=== PATIENT | male | born 1980 | race Caucasian/White ===

== ENCOUNTER 2022-12-20 20:18 | Emergency (ER) | payer MEDICAID, SELFPAY ==
[2022-12-20 20:46] VITALS: PULSE 73; RESP 18; O2SAT 98; BMI 25.1
--- NOTE | 2022-12-20 20:47 | ED.GENADULT ---
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 - Last Filed: 12/20/22 20:53> Stated complaint: withdrawals,seeking detox <Sara NewmanREMY - Last Filed: 12/20/22 20:53> Time Seen by Provider: 12/20/22 23:12 <Sara NewmanREMY - Last Filed: 12/20/22 20:53> Related Data Allergies/adverse reactions: Allergies Allergy/AdvReac Type Severity Reaction Status Date / Time No Known Allergies Allergy Verified 12/20/22 20:53 <Sara NewmanREMY - Last Filed: 12/20/22 20:53> [facility] Past Medical History Medical History: Medical History (Updated 12/20/22 @ 23:27 by Paris Boykin MD) Substance abuse <Sara NewmanREMY - Last Filed: 12/20/22 20:53> Social History Social History: Social History Advance Directives: No Advance Directives Information Provided: No <Sara Newman REMY - Last Filed: 12/20/22 20:53> Physical Exam ED Vital Signs: Vital Signs - 24 hr 12/20/22 20:46 12/20/22 23:19 Pulse Rate 73 70 Respiratory Rate 18 17 Blood Pressure 106/70 Pulse Oximetry 98 97 Oxygen Delivery Method Room Air Room Air BMI result Body Mass Index 25.1 <Sara NewmanREMY - Last Filed: 12/20/22 20:53> Vital Signs - 24 hr 12/20/22 20:46 12/20/22 23:19 Pulse Rate 73 70 Respiratory Rate 18 17 Blood Pressure 106/70 Pulse Oximetry 98 97 Oxygen Delivery Method Room Air Room Air BMI result Body Mass Index 25.1 <Paris Boykin MD - Last Filed: 12/20/22 23:33> Course Course Course Narrative: This is an RME: Additional HPI, ROS, PE not included below will be deferred to primary provider. Patient 42-year-old male who presents to the emergency department requesting assistance with detox from heroine, cocaine, methadone. States he received decreased dosage, methadone clinic in [place], was stuck in [place] for 1 week so couldn't go to clinic, upon returning, dosage was decreased, so he has resorted to using again. Last dose was yesterday at [facility] in [place]. He is requesting assistance with detox to stop using and get back to his prior dosing. Reports fatigue, GI upset, chills. Last used heroin and cocaine this afternoon. Denies known sick contacts. 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, COVID-19 screening <Sara Newman CNP - Last Filed: 12/20/22 20:53> Medications Administered Discontinued Medications Generic Name Dose Route Start Last Admin Trade Name Freq PRN Reason Stop Dose Admin Clonidine HCl 0.1 mg 12/20/22 23:17 12/20/22 23:23 Clonidine Hcl 0.1 Mg Tablet PO 12/20/22 23:18 0.1 mg ONCE ONE Administration Protocol Loperamide HCl 2 mg 12/20/22 23:17 12/20/22 23:23 Loperamide Hcl 2 Mg Capsule PO 12/20/22 23:18 2 mg ONCE ONE Administration Ondansetron HCl 4 mg 12/20/22 23:17 12/20/22 23:24 Ondansetron Odt 4 Mg Tab.Rapdis TRANSLINGU 12/20/22 23:18 4 mg ONCE ONE Administration <Sara Newman CNP - Last Filed: 12/20/22 20:53> Medications Administered Discontinued Medications Generic Name Dose Route Start Last Admin Trade Name Freq PRN Reason Stop Dose Admin Clonidine HCl 0.1 mg 12/20/22 23:17 12/20/22 23:23 Clonidine Hcl 0.1 Mg Tablet PO 12/20/22 23:18 0.1 mg ONCE ONE Administration Protocol Loperamide HCl 2 mg 12/20/22 23:17 12/20/22 23:23 Loperamide Hcl 2 Mg Capsule PO 12/20/22 23:18 2 mg ONCE ONE Administration Ondansetron HCl 4 mg 12/20/22 23:17 12/20/22 23:24 Ondansetron Odt 4 Mg Tab.Rapdis TRANSLINGU 12/20/22 23:18 4 mg ONCE ONE Administration <Paris Boykin MD - Last Filed: 12/20/22 23:33> Medical Decision Making Medical Decision Making MDM Narrative: - care team has been consulted <Paris Boykin MD - Last Filed: 12/20/22 23:33> Lab Data Labs: Lab Results 12/20/22 12/20/22 Range/Units 21:06 22:03 COVID-19 (SATR) Invalid Negative (Negative) COVID-19 Clin Com See Note See Note <Sara Newman CNP - Last Filed: 12/20/22 20:53> Lab Results 12/20/22 12/20/22 Range/Units 21:06 22:03 COVID-19 (STAR) Invalid Negative (Negative) COVID-19 Clin Com See Note See Note <Paris Boykin MD - Last Filed: 12/20/22 23:33> Discharge Plan Discharge Clinical Impression: Substance abuse <Sara Newman CNP - Last Filed: 12/20/22 20:53> Patient Disposition: Still a Patient <Sara Newman CNP - Last Filed: 12/20/22 20:53> Instructions: Narcotic Use Disorder (ED) <Sara Newman CNP - Last Filed: 12/20/22 20:53> Additional Instructions: Please follow-up with your primary care physician tomorrow. If you have any worsening or new symptoms, please return to the emergency room or call 911 <Sara Newman CNP - Last Filed: 12/20/22 20:53> Interventions: [place]-Suicide Risk Severity Scale Last Done: 12/20/22 20:53 <Sara Newman CNP - Last Filed: 12/20/22 20:53>
[2022-12-20 21:48] LABS: COVID-19 Test Invalid (Negative); IDNOW Serial# BCCEAD1C
[2022-12-20 23:10] LABS: COVID-19 Test Negative (Negative); IDNOW Serial# 6674DD1D
--- NOTE | 2022-12-20 23:18 | ED_ITS ---
HPI - General Adult General Chief complaint: ETOH/Substance Use Stated complaint: withdrawals,seeking detox Time Seen by Provider: 12/20/22 23:12 Source: patient Mode of arrival: ambulatory Limitations: no limitations History of Present Illness HPI narrative: Patient comes to the emergency room complaining withdrawal symptoms. Patient states that he did not get his full does of methadone. Patient requesting a f ull dose at this time. Patient states that his methadone Clinic is in [place]. Patient denies suicidal or homicidal ideation. Related Data Allergies Allergy/AdvReac Type Severity Reaction Status Date / Time No Known Allergies Allergy Verified 12/20/22 20:53 Review of Systems Review of Systems: Constitutional : No Weight loss, No Fever, No Chills, No Night Sweats, No Fatigue, patient states that he feels unwell ENT/Mouth : No Hearing loss, No Ear Pain, No Nasal Congestion, No Sinus Pain, No Hoarseness, No sore throat, No Rhinorrhea, No Swallowing Difficulty Eyes: No Eye Pain, No Swelling, No Redness, No Foreign Body, No Discharge, No V ision Changes Cardiovascular : No Chest Pain, No SOB, No Dyspnea on Exertion, No Orthopnea, No Edema, No Palpitations Respiratory : No Cough, No Sputum, No Wheezing, No Smoke Exposure, No Dyspnea Gastrointestinal : No Nausea, No Vomiting, No Diarrhea, No Constipation, No abdominal Pain, No Hematochezia, No Melena Genitourinary : no irregular bleeding, No Dysuria, No Urinary Frequency, No Hematuria, No Urinary Incontinence, No Urgency, No Flank Pain, No Urinary Flow Changes, No Hesitancy Musculoskeletal : No joint pain, No Myalgias, No Joint Swelling Skin : No Skin Lesions, No rash Neuro : No Weakness, No Numbness, No Paresthesias, No Loss of Consciousness, No Dizziness, No Headache Psych : No Anxiety/Panic, No Depression, No SI/HI/AH/VH, No Social Issues, Heme/Lymph: No Bruising, No Bleeding,No Lymphadenopathy Endocrine : No Polyuria, No Polydipsia, No Temperature Intolerance [facility] Past Medical History Medical History (Updated 12/20/22 @ 23:27 by Paris Boykin MD) Substance abuse Social History Social History Advance Directives: No Advance Directives Information Provided: No Physical Exam ED Vital Signs: Vital Signs - 24 hr 12/20/22 20:46 12/20/22 23:19 Pulse Rate 73 70 Respiratory Rate 18 17 Blood Pressure 106/70 Pulse Oximetry 98 97 Oxygen Delivery Method Room Air Room Air BMI result Body Mass Index 25.1 Const Other: Appearance: Alert. Oriented X3. No acute distress. Eyes: Pupils equal, round and reactive to light. ENT: Pharynx normal. Neck: Normal inspection. Neck supple. No lymph nodes noted. No crepitus CVS: Normal heart rate and rhythm. Pulses normal. Normal S1 and S2 Respiratory: No respiratory distress. Breath sounds normal. No Wheezing. No rales Abdomen: Soft and nontender. No rigidity. No distention. Skin: Skin warm and dry. Normal skin color. Normal skin turgor. Extremities: No lower extremity edema. No Lacerations. No Rash Neuro: Oriented X 3. No motor deficit. No sensory deficit. Moving all extremities. No slurred speech. CN 2 through 12 grossly intact Psych: calm, cooperative, normal affect Course Course Course Narrative: -patient was given p.o. clonidine, loperamide, Zofran -care team has been consulted -at this time, we cannot provide patient with methadone, as the clinic is closed and we cannot confirm the dose. Medications Administered Discontinued Medications Generic Name Dose Route Start Last Admin Trade Name Naviq PRN Reason Stop Dose Admin Clonidine HCl 0.1 mg 12/20/22 23:17 12/20/22 23:23 Clonidine Hcl 0.1 Mg Tablet PO 12/20/22 23:18 0.1 mg ONCE ONE Administration Protocol Loperamide HCl 2 mg 12/20/22 23:17 12/20/22 23:23 Loperamide Hcl 2 Mg Capsule PO 12/20/22 23:18 2 mg ONCE ONE Administration Ondansetron HCl 4 mg 12/20/22 23:17 12/20/22 23:24 Ondansetron Odt 4 Mg Tab.Rapdis TRANSLINGU 12/20/22 23:18 4 mg ONCE ONE Administration Medical Decision Making Medical Decision Making MDM Narrative: -care team has been consulted -patient isn't suicidal homicidal -patient was evaluated by the care team, patient was giving information to call to schedule his own appointments and detox Lab Data Labs: Lab Results 12/20/22 12/20/22 Range/Units 21:06 22:03 COVID-19 (STAR) Invalid Negative (Negative) COVID-19 Clin Com See Note See Note Discharge Plan Discharge Clinical Impression: Substance abuse Patient Disposition: Home, Self-Care Instructions: Narcotic Use Disorder (ED) Additional Instructions: Please follow-up with your primary care physician tomorrow. If you have any worsening or new symptoms, please return to the emergency room or call 911 Interventions: [place]-Suicide Risk Severity Scale Last Done: 12/20/22 20:53
[2022-12-20 23:19] VITALS: BP 106/70; PULSE 70; RESP 17; O2SAT 97
[2022-12-20] MEDS: Loperamide HCl 2 MG CAPSULE PO (23:23)
[2022-12-20] MEDS: cloNIDine HCL 0.1 MG TABLET PO (23:23)
[2022-12-20] MEDS: Ondansetron ODT 4 MG TAB.RAPDIS TRANSLINGU (23:24)
--- NOTE | 2022-12-21 00:04 | MHC.CARE ---
CARE Team provided resources to pt and being discharged at this time. ED provider aware and in agreement.
== END 2022-12-21 00:51 | disposition home or self-care (01) ==
PROVIDERS: Nurse Practitioner Family; Emergency Provider Emergency Medicine; PCP Family Medicine
DX: F10.239 Alcohol dependence with withdrawal, unspecified (principal); Y90.9 Presence of alcohol in blood, level not specified; Z20.822 Contact with and (suspected) exposure to COVID-19; Z20.828 Contact with and (suspected) exposure to other viral communicable diseases
CPT/HCPCS: 87635; 99283; 99284

== ENCOUNTER 2022-12-22 10:41 | Emergency (ER) | payer MEDICAID, SELFPAY ==
[2022-12-22 11:01] VITALS: BP 114/73; PULSE 73; RESP 16; TEMP 36.3; O2SAT 97; BMI 25.1
--- NOTE | 2022-12-22 11:32 | ED.GENADULT ---
HPI - General Adult General Chief complaint: General Medical Stated complaint: Needs methadone dose Time Seen by Provider: 12/22/22 11:21 Source: patient Mode of arrival: ambulatory Limitations: no limitations History of Present Illness HPI narrative: Patient is a 42 year old assigned male at with a history of opiate abuse presenting to the emergency department today requesting his methadone dose. Patient states that he had to miss his methadone dose yesterday and today they didn't get there soon enough to have their previous dose verified. Patient denies any dizziness, lightheadedness, abdominal pain, nausea, vomiting, fever, chills, blurry vision, double vision, loss of vision, chest pain, difficulty breathing, shortness of breath, back pain, night sweats, pain with urination, increased urinary frequency, increased urinary urgency, blood in his urine or stool, syncope or a near syncopal episode, recent trauma or falls, bowel incontinence, bladder incontinence, bowel retention, bladder retention, or any other complaints at this time. Severity: mild Severity scale (1-10): 1 Relieving factors: none Exacerbating factors: none Associated symptoms: denies other symptoms Treatments prior to arrival: none Related Data Allergies Allergy/AdvReac Type Severity Reaction Status Date / Time No Known Allergies Allergy Verified 12/22/22 11:01 Review of Systems Constitutional: Constitutional: Reports no additional constitutional complaints, Denies chills, Denies fever(s) and Denies night sweats Eyes: Eyes: Reports no additional eye complaints, Denies blurry vision, Denies change in vision, Denies diplopia, Denies eye discharge, Denies loss of vision and Denies eye pain ENT: Denies dizziness Cardiovascular: Cardiovascular: Reports no additional cardiovascular complaints, Denies chest pain, Denies lightheadedness, Denies Loss of Consciousness and Denies dyspnea Respiratory: Respiratory: Reports no additional respiratory complaints and Denies dyspnea Gastrointestinal: Gastrointestinal: Reports no additional gastrointestinal complaints, Denies abdominal pain, Denies melena, Denies hematochezia, Denies change in bowel habits and Denies change in stool character Genitourinary: Genitourinary: Reports no additional male genitourinary complaints, Denies hematuria, Denies oliguria, Denies difficulty urinating, Denies dysuria, Denies urinary frequency, Denies urinary hesitancy, Denies urinary incontinence and Denies urinary urgency Musculoskeletal: Musculoskeletal: Reports no additional musculoskeletal complaints, Denies numbness and Denies tingling Neurologic: Denies dizziness, Denies loss of vision, Denies numbness and Denies tingling Psychiatric: Psychiatric: Reports no additional psychiatric complaints Endocrine: Endocrine: Reports no additional endocrine complaints Hematologic/Lymphatic: Hematologic/Lymphatic: Reports no additional hematologic/lymphatic complaints Allergic/Immunologic: Allergic/Immunologic: Reports no additional allergic/immunologic complaints PMFSH Past Medical History Attestation statement: The following information was validated with the patient. Source: old records reviewed and nursing notes reviewed Medical History Substance abuse Social History Social History Advance Directives: No Advance Directives Information Provided: No Physical Exam ED Vital Signs: Vital Signs - 24 hr 12/22/22 11:01 Temperature 97.4 F Pulse Rate 73 Respiratory Rate 16 Blood Pressure 114/73 Pulse Oximetry 97 Oxygen Delivery Method Room Air BMI result Body Mass Index 25.1 Const General: cooperative, no acute distress, alert and awake Nutritional Appearance: well nourished Orientation/consciousness: patient oriented x3 Limitations: no limitations HENMT Head: Yes normal to inspection and Yes atraumatic Ears: hearing grossly normal bilaterally and external ears normal General nose exam: Normal external nose present, no nasal discharge noted and no epistaxis Face and sinus: Yes normal facial exam, No abrasion and No laceration Mouth: Normal oral and palatal mucosa present, no drooling and no muffled voice Eyes General: appearance normal, both eyes and all related structures Periorbital: periorbital findings normal Eyelids: Yes eyelids normal Conjunctivae: conjunctivae normal Pupils: Equal, round and reactive pupils present EOM: EOMs intact bilaterally Neck Neck: Yes normal visual inspection, Yes full ROM and Yes no lymphadenopathy Chest Chest palpation & inspection: normal inspection of the chest Resp Effort & Inspection: normal respiratory effort and able to speak in complete sentences Auscultation: clear to auscultation bilaterally Cardio Rate: regular rate Rhythm: regular rhythm GI Inspection: Yes normal to inspection Palpation (GI): Soft to palpation, not firm, nontender and no guarding Neuro General: patient oriented x3 and moves all extremities Cranial nerves: Yes Equal, round and reactive pupils present Cognition (Neuro): normal cognition Motor exam (neuro): 5/5 motor strength present throughout Sensory Exam: Normal double simultaneous stimulation for sensation Coordination: [id number] test normal Extrem General: Yes normal to inspection, Yes full ROM and Yes capillary refill normal Psych Appearance: grossly normal Mental Status: mental status grossly normal Affect: normal affect Attitude: cooperative Thought process: Normal thought process present Thought content: Normal thought content present Insight: Good insight present (Psych) Medications Administered Discontinued Medications Generic Name Dose Route Start Last Admin Trade Name Nery MARTINEZ Reason Stop Dose Admin Methadone HCl 40 mg 12/22/22 11:30 12/22/22 11:37 Methadone Hcl 20 Mg/2 Ml Oral.Conc PO 12/22/22 11:31 40 mg ONCE ONE Administration Medical Decision Making Medical Decision Making [facility] Narrative: Patient is a 42 year old assigned male at with a history of opiate abuse presenting to the emergency department today requesting his methadone dose. Patient's physical exam was unremarkable. Patient's dose was verified at 40mg. I explained my physical exam findings to the patient. I answered all questions asked by the patient. Patient received his methadone dose, without incident. I stressed the importance of the patient taking his medication as prescribed. I stressed the importance of the patient following up with his primary care provider. I stressed the importance of the patient returning to the emergency department immediately if his symptoms were to worsen or if he were to develop any dizziness, shortness of breath, difficulty breathing, chest pain, blurry vision, loss of vision, nausea, vomiting, abdominal pain, fever, chills, back pain, or any other complaints. Patient verbalized agreement and understanding with this treatment plan and discharge. Differential Diagnosis Differential Diagnoses: The differential diagnosis associated with the presentation includes missed methadone dose Discharge Plan Discharge Clinical Impression: Methadone dependence Patient Disposition: Home, Self-Care Additional Instructions: Follow up with your primary care provider. Return to the emergency department immediately if you develop any dizziness, shortness of breath, difficulty breathing, chest pain, blurry vision, loss of vision, nausea, vomiting, abdominal pain, fever, chills, back pain, or any other complaints. Referrals: Michael Danielle DO [Primary Care Provider] - Interventions: ED Discharge Assessment Last Done: 12/22/22 11:47 Discharge Date/Time: 12/22/22 11:48 Print Language: Greenlandic
[2022-12-22] MEDS: methADONE HCl 20 MG/2 ML ORAL.CONC 40 MG PO (11:37)
--- NOTE | 2022-12-22 11:40 | PC.NURSE ---
methadone verified, pt medicated per provider order.
== END 2022-12-22 11:48 | disposition home or self-care (01) ==
LOC: HO.ED 11:44
PROVIDERS: Emergency Provider Emergency Medicine; PCP Family Medicine
DX: F11.20 Opioid dependence, uncomplicated (principal)
CPT/HCPCS: 99282; 99283

== ENCOUNTER 2024-02-11 00:30 | Inpatient (IN) | payer MEDICAID, SELFPAY ==
[2024-02-11] VITALS (70 sets, daily range): BP systolic 45–134; BP diastolic 16–92; PULSE 60–139; RESP 11–25; TEMP 31–39.7; O2SAT 90–100; BMI 23.2
--- NOTE | 2024-02-11 | EEG_ITS ---
FINDINGS: Background activity consists of a flat line base with recurrent burst suppression pattern with burst lasting from 2 to 10 seconds of generalized polyspikes followed by suppression patterns throughout the record. IMPRESSION: This is a markedly abnormal EEG with a burst suppression pattern consistent with severe hypoxic encephalopathy and usually indicative of a poor prognosis. Clinical correlation is suggested. MD FANG Paz/THADDEUS / [id number]
--- NOTE | ~2024-02-11 | XR_ITS ---
EXAMINATION: XR CHEST CLINICAL INFORMATION: Central line placement COMPARISON: None available. TECHNIQUE: Frontal view of the chest was obtained. FINDINGS: Lines and tubes: Endotracheal tube 2.4 cm above layla. NG tube noted with the tip outside the [id number] with extending into the upper abdomen passing EG junction. This catheter noted with the tip in the region of the SVC. No pneumothorax. Cardiomediastinal silhouette normal. Lungs clear. Bone and soft tissues unremarkable XR/XR chest 1V IMPRESSION: 1. Endotracheal tube 2.4 cm above layla. Central venous catheter tip as above. No pneumothorax
--- NOTE | ~2024-02-11 | XR_ITS ---
EXAMINATION: XR CHEST CLINICAL INFORMATION: Placement of OGT COMPARISON: Same day earlier TECHNIQUE: Frontal view of the chest was obtained. FINDINGS: Patient is intubated with endotracheal tube in good position with the tip approximately 7 cm above the layla. Replaced NGT is well positioned with port and and/or the tube in the stomach. Lungs are well-expanded. There is mild dextroscoliosis and no evidence of cardiomegaly. No pleural effusions. XR/XR chest 1V IMPRESSION: Well-positioned support tubes
--- NOTE | ~2024-02-11 | XR_ITS ---
EXAMINATION: XR CHEST CLINICAL INFORMATION: Status post cardiac arrest. COMPARISON: Chest radiograph 02/11/2024. TECHNIQUE: Frontal view of the chest was obtained. FINDINGS: The endotracheal tube terminates at 3.5 cm above the layla. Right IJ CVC tip projects at the level of the lower SVC. An enteric tube courses into the abdomen and terminates outside of the field of view. Stable prominence of the cardiomediastinal silhouette. Increased bronchovascular markings with no consolidation, pleural effusion or pneumothorax. No displaced osseous fractures. XR/XR chest 1V IMPRESSION: 1. The endotracheal tube terminates at 3.5 cm above the layla. 2. Increased bronchovascular markings with no consolidation, pleural effusion or pneumothorax. Findings are nonspecific could be accentuated by low lung volumes and bronchovascular crowding, versus related with small airways disease and pulmonary edema. 3. No displaced osseous fractures.
--- NOTE | ~2024-02-11 | XR_ITS ---
EXAMINATION: XR CHEST CLINICAL INFORMATION: Post intubation evaluation COMPARISON: None available. TECHNIQUE: Frontal view of the chest was obtained. FINDINGS: Endotracheal tube tip is at the thoracic inlet. On this portable study the lung bases have not been included. There is atelectasis at the lung bases. Heart size normal and slight distention of the pulmonary vessels may be positional. XR/XR chest 1V IMPRESSION: Incomplete coverage of the chest. The ET tube is just past the thoracic inlet.
--- NOTE | 2024-02-11 00:49 | PC.NURSE ---
pt biba from home, a&ox3, pt reports withdrawing from methadone due to relapsing 3 days ago, pt reports he uses IV drugs, reports using cocaine. pt reports he last used this afternoon. pt denies si/hi. reports going to the police station for help. pt changed over, belongings placed into POD closet by security.
--- NOTE | 2024-02-11 00:55 | ECG_ITS ---
Test Reason : TACHYCARDIA Blood Pressure : / mmHG Vent. Rate : 116 BPM Atrial Rate : 116 BPM P-R Int : 126 ms QRS Dur : 096 ms QT Int : 382 ms P-R-T Axes : 062 074 050 degrees QTc Int : 530 ms Sinus tachycardia Nonspecific ST abnormality Prolonged QT Abnormal ECG No previous ECGs available Referred By: Trista Rose Electronically Signed By:RYAN ZHU
[2024-02-11 01:11] LABS: Basophils Percent Auto 0.3 % (0-2); Eosinophils Absolute Auto 0.1 X10*3/uL (0.0-0.4); Eosinophils Percent Auto 1.2 % (0-4); Hematocrit 37.3 % (42.0-52.0); Hemoglobin 13.1 g/dl (14.0-18.0); Imm Gran Abs Auto 0.05 X10*3/uL (0.00-0.03); Imm Gran Pct Auto 0.4 % (0.0-0.4); Lymphocytes Absolute Auto 1.1 X10*3/uL (1.2-4.9); Lymphocytes Percent Auto 8.8 % (20-40); MANUAL DIFF FLAG NO; Mean Corpuscular HGB Conc 35.1 g/dl (31.0-36.0); Mean Corpuscular Hemoglobin 31.1 pg (27.0-33.0); Mean Corpuscular Volume 88.6 fL (80.0-98.0); Mean Platelet Volume 10.4 fL (9.4-12.4); Monocytes Absolute Auto 0.8 X10*3/uL (0.1-1.2); Monocytes Percent Auto 6.6 % (2-11); Neutrophils Absolute Auto 9.9 x10*3/uL (2.0-8.3); Neutrophils Percent Auto 82.7 % (45-73); Platelet Count 296 X10*3/uL (160-400); Red Blood Count 4.21 X10*6/uL (4.60-5.80); Red Cell Distribution Width 13.3 % (11.0-16.0)
[2024-02-11] MEDS: LORazepam 1 MG TABLET 2 MG PO (01:12)
[2024-02-11] MEDS: methADONE HCl 20 MG/2 ML ORAL.CONC 40 MG PO (01:12)
--- NOTE | 2024-02-11 01:15 | PC.NURSE ---
labs obtained and sent to lab, pt medicated per mar, pt tolerated well with water. call lopez within reach.
--- NOTE | 2024-02-11 01:16 | ED_ITS ---
HPI - General Adult General Chief complaint: General Medical Stated complaint: withdrawals Time Seen by Provider: 02/11/24 00:31 Source: patient and old records reviewed Mode of arrival: EMS Limitations: no limitations History of Present Illness HPI narrative: 43 yo male with PMH of treated hep C, cocaine abuse, opiate use disorder states he goes to [facility] in [place] and takes 240mg methadone daily but has not dosed in 3 days comes in with c/o feeling paranoid and myalgias. No SI/HI wants to go to detox. Injected cocaine prior to arrival. He note he hasn't slept or eaten in days and is exhausted. MD complaint: withdrawal Onset (ago): day(s) (2) Radiation: non-radiation Severity: moderate Quality: aching Pain Consistency: constant Relieving factors: none Exacerbating factors: none Associated symptoms: malaise Treatments prior to arrival: none Related Data Allergies Allergy/AdvReac Type Severity Reaction Status Date / Time No Known Allergies Allergy Verified 02/11/24 00:42 Review of Systems 2 Review of Systems: Constitutional : No Fever, pos Chills, No Fatigue ENT/Mouth : No sore throat, No Rhinorrhea Eyes: No Eye Pain, No Swelling, No Redness Cardiovascular : No Chest Pain, No SOB, No Dyspnea on Exertion Respiratory : No Cough, No Sputum Gastrointestinal : pos Nausea, No Vomiting, No Diarrhea, No abdominal Pain Genitourinary : No Dysuria, No Urinary Frequency, No Hematuria, Musculoskeletal : No joint pain, pos Myalgias, No Joint Swelling Skin : No Skin Lesions, No rash Neuro : No Weakness, No Numbness, No Dizziness, noHeadache Psych : pos Anxiety/Panic, No Depression Heme/Lymph: No Bruising, No Bleeding,No Lymphadenopathy Endocrine : No Polyuria, No Polydipsia All other systems reviewed and are negative PMFSH Past Medical History Attestation statement: The following information was validated with the patient. Source: old records reviewed Medical History Substance abuse Social History Social History Smoked in Last 30 Days: Yes Use of substances other than those prescribed or required for medical reasons: Yes Substance Use Type: Crack/Cocaine Advance Directives: No Advance Directives Information Provided: Yes Do you have a plan to hurt others: No Plan Physical Exam ED Vital Signs: Vital Signs - 24 hr 02/11/24 00:36 02/11/24 02:29 02/11/24 03:02 Temperature 98.2 F 99.5 F Pulse Rate 119 H 116 H 85 Respiratory Rate 11 L 20 15 Blood Pressure 134/68 114/51 L 105/59 L Pulse Oximetry 95 94 95 Oxygen Delivery Method Room Air Room Air Room Air 02/11/24 04:01 02/11/24 05:01 02/11/24 06:00 Temperature 97.5 F Pulse Rate 77 73 73 Respiratory Rate 18 12 12 Blood Pressure 95/47 L 97/54 L 96/52 L Pulse Oximetry 97 98 100 Oxygen Delivery Method Room Air Room Air Room Air BMI result Body Mass Index 23.2 Appearance: Alert. Oriented X3. Mild acute distress. Anxious restless says he hasn't slept in 8 days Eyes: Pupils equal, round and reactive to light. ENT: Pharynx normal. Neck: Normal inspection. Neck supple. CVS: Normal heart rate and rhythm. Pulses normal. Respiratory: No respiratory distress. Breath sounds normal. Abdomen: Soft and nontender. Skin: Skin warm and diaphoretic. Normal skin color. Normal skin turgor. Extremities: No lower extremity edema. No calf ttp Neuro: Oriented X 3. No motor deficit. No sensory deficit. Course Course Course Narrative: 225am the patient seems to have become even more diaphoretic and acutely agitated I am concerned given his qtc about more methadone he could also be in acute cocaine psychosis this is acute change from his admission - 4mg IV ativan ordered Reevaluation(s) Reevaluation #1: after 4mg of IV ativan asleep and event resolved VS stable Reevaluation #2: still resting comfortably VS stable resting comfortably 638am signed out to Dr. Richardson pending waking up and repeat evaluation Medications Administered Generic Name Dose Route Start Last Admin Trade Name Freq PRN Reason Stop Dose Admin Sodium Chloride 1,000 mls @ 100 mls/hr 02/11/24 01:30 02/11/24 01:47 Ns IVCONT 100 mls/hr .Q10H MONICO Administration Potassium Chloride 10 meq in 100 mls @ 100 mls/hr 02/11/24 05:15 02/11/24 06:23 Potassium Chloride/H20 IV 04/30/24 07:14 100 mls/hr Q1H MONICO Administration Discontinued Medications Generic Name Dose Route Start Last Admin Trade Name Nery PRN Reason Stop Dose Admin Magnesium Sulfate 2 gm in 50 mls @ 150 mls/hr 02/11/24 01:22 02/11/24 02:07 Magnesium Sulfate/H2o IV 02/11/24 01:41 Infused ONCE ONE Infusion Sodium Chloride 1,000 mls @ 999 mls/hr 02/11/24 05:48 02/11/24 05:50 Ns IV 02/11/24 06:48 999 mls/hr .Q1H1M ONE Administration Lorazepam 2 mg 02/11/24 00:55 02/11/24 01:12 Lorazepam 1 Mg Tablet PO 02/11/24 00:56 2 mg ONCE ONE Administration Lorazepam 2 mg 02/11/24 02:29 02/11/24 02:30 Lorazepam 2 Mg/Ml Vial IVPUSH 02/11/24 02:30 2 mg ONCE ONE Administration Lorazepam 2 mg 02/11/24 02:38 02/11/24 02:45 Lorazepam 2 Mg/Ml Vial IVPUSH 02/11/24 02:39 2 mg ONCE ONE Administration Methadone HCl 40 mg 02/11/24 01:15 02/11/24 01:12 Methadone Hcl 20 Mg/2 Ml Oral.Conc PO 02/11/24 01:16 40 mg ONCE ONE Administration Potassium Chloride 40 meq 02/11/24 01:27 02/11/24 01:47 Potassium Chloride Packet 20 Meq Packet PO 02/11/24 01:28 40 meq ONCE ONE Administration Medical Decision Making Medical Decision Making MDM Narrative: 43 yo male with PMH of treated hep C, cocaine abuse, opiate use disorder here with no methadone dose for 3 days and lack of sleep due to cocaine use - at this time oral ativan and 40mg methadone ordered, EKG and basic labs, denies medical complaints other than insomnia. No SI. Will refer to addiction medicine for the AM. qtc prolonged IV magnesium ordered addiction will need to address in AM Differential Diagnosis Differential Diagnoses: The differential diagnosis associated with the presentation includes substance abuse, withdrawal Admission/Observation Consideration of admission/observation: Escalation of care including admission/observation considered physician observation started at 137am pending addiction medicine and repeat EKG at 4am Lab Data MDM Lab Attestation statement: I reviewed the patient's lab results. 02/11/24 01:07 02/11/24 01:07 Labs: Lab Results 02/11/24 Range/Units 01:07 WBC 12.0 H (4.8-10.8) X10*3/uL RBC 4.21 L (4.60-5.80) X10*6/uL Hgb 13.1 L (14.0-18.0) g/dl Hct 37.3 L (42.0-52.0) % MCV 88.6 (80.0-98.0) fL MCH 31.1 (27.0-33.0) pg MCHC 35.1 (31.0-36.0) g/dl RDW 13.3 (11.0-16.0) % Plt Count 296 (160-400) X10*3/uL MPV 10.4 (9.4-12.4) fL Immature Gran % (Auto) 0.4 (0.0-0.4) % Neut % (Auto) 82.7 H (45-73) % Lymph % (Auto) 8.8 L (20-40) % [place] % (Auto) 6.6 (2-11) % Eos % (Auto) 1.2 (0-4) % Baso % (Auto) 0.3 (0-2) % Lymph # (Auto) 1.1 L (1.2-4.9) X10*3/uL [place] # (Auto) 0.8 (0.1-1.2) X10*3/uL Eos # (Auto) 0.1 (0.0-0.4) X10*3/uL Baso # (Auto) 0.0 (0.0-0.2) X10*3/uL Abs Immat Gran (auto) 0.05 H (0.00-0.03) X10*3/uL Absolute Neuts (auto) 9.9 H (2.0-8.3) x10*3/uL Absolute Nucleated RBC 0.000 (0.0-0.012) X10*3/uL Nucleated RBC % (auto) 0.0 (0.0-0.2) /100WBC Sodium 137 (135-145) mmol/L Potassium 3.0 L (3.3-5.1) mmol/L Chloride 102 (96-108) mmol/L Carbon Dioxide 21 L (22-29) mmol/L Anion Gap 17 (12-20) BUN 15 (9-16) mg/dL Creatinine 0.77 (0.5-1.4) mg/dL Estim Creat Clear Calc 123.6 Estimated GFR > 60 Random Glucose 139 H (60-115) mg/dL Calcium 9.3 (8.4-10.2) mg/dL Magnesium 1.8 (1.6-2.6) mg/dL Total Bilirubin 0.5 (0.0-1.0) mg/dL Direct Bilirubin 0.2 (0.0-0.5) mg/dL AST 25 (5-37) U/L ALT 19 (0-40) U/L Alkaline Phosphatase 66 (39-117) U/L Total Protein 7.6 (6.5-8.0) g/dL Albumin 3.8 (3.5-5.0) g/dL Ethyl Alcohol < 10 mg/dL Independent Interpretation I performed an independent interpretation of an: EKG Interpretation: Rate: 116 Rhythm: sinus tachycardic [place]: normal Normal P waves. Normal SARAH. Normal QRS complex. ST T wave : no SIMONE, nonspecific ST T wave changes likely due to prolonged qtc qTC: 530 prior studies: no acute ischemia The study has been interpreted contemporaneously by me. Rate: 75 Rhythm: NSR [place]: normal Normal P waves. Normal SARAH. Normal QRS complex. ST T wave : normal no SIMONE qTC: prolonged 509 prior studies: improving qtc The study has been interpreted contemporaneously by me. . Independent Historian Clinical information obtained from an independent historian. History obtained from or confirmed by: EMS External Record Review External record reviewed: Inpatient record Critical Care Time Critical Care Time Critical Care Time: Yes Total Critical Care Time: 60 Attestation: IVF< repeat IV ativan for withdrawal symptoms, repletion of K and magnesiu, repeat EKG I attest to this time spent taking care of the patient Discharge Plan Discharge Clinical Impression: Cocaine abuse, Opiate withdrawal, Long QT interval Patient Disposition: Still a Patient Print Language: Japanese
[2024-02-11 01:23] LABS: Ethanol < 10 mg/dL
[2024-02-11 01:26] LABS: Alanine Aminotransferase 19 U/L (0-40); Albumin Level 3.8 g/dL (3.5-5.0); Alkaline Phosphatase 66 U/L (39-117); Anion Gap 17 (12-20); Aspartate Amino Transferase 25 U/L (5-37); Bilirubin Direct 0.2 mg/dL (0.0-0.5); Bilirubin Total 0.5 mg/dL (0.0-1.0); Blood Urea Nitrogen 15 mg/dL (9-16); Calcium 9.3 mg/dL (8.4-10.2); Carbon Dioxide 21 mmol/L (22-29); Chloride 102 mmol/L (96-108); Creatinine Clr Calc Pharmacy 123.6; Estimated Glomerular Filt Rate > 60; Glucose Random 139 mg/dL (60-115); Magnesium 1.8 mg/dL (1.6-2.6); Sodium 137 mmol/L (135-145); Total Protein 7.6 g/dL (6.5-8.0)
[2024-02-11] MEDS: Potassium Chloride Packet 20 MEQ PACKET 40 MEQ PO (01:47)
[2024-02-11] MEDS: 0.9 % Sodium Chloride 1,000 ML 100 ML IVCONT ×2 (01:47→10:50)
[2024-02-11] MEDS: Magnesium Sulfate/H2O 2 GM/50 ML PIGGYBACK IV (01:47)
[2024-02-11] MEDS: LORazepam 2 MG/ML VIAL IVPUSH ×4 (02:30→07:35)
--- NOTE | 2024-02-11 02:36 | PC.NURSE ---
pt extremely diaphoretic, agitated, with visual and auditory hallucinations. seizure pads placed for safety. at bedside. pt medicated with 4mg ativan at this time; pt able to follow commands as asked.
--- NOTE | 2024-02-11 03:03 | PC.NURSE ---
pt resting in stretcher, eyes closed, respirations even and unlabored; sating 95-98% on room air, normal sinus on tele 80-85bpm. aware.
--- NOTE | 2024-02-11 04:00 | ECG_ITS ---
Test Reason : QTC Blood Pressure : / mmHG Vent. Rate : 075 BPM Atrial Rate : 075 BPM P-R Int : 180 ms QRS Dur : 102 ms QT Int : 456 ms P-R-T Axes : 057 078 048 degrees QTc Int : 509 ms Normal sinus rhythm Prolonged QT Abnormal ECG When compared with ECG of 11-FEB-2024 01:18, Vent. rate has decreased BY 41 BPM Referred By: Trista Rose Electronically Signed By:RYAN ZHU
[2024-02-11] MEDS: Potassium Chloride/H20 10 MEQ/100 ML PIGGYBACK 100 MEQ IV ×3 (05:22→10:50)
[2024-02-11] MEDS: 0.9 % Sodium Chloride 1,000 ML 999 ML IV ×2 (05:50→08:19)
--- NOTE | 2024-02-11 05:58 | PC.NURSE ---
aware of pt bp, 1 liter fluid bolus begun at this time.
--- NOTE | 2024-02-11 07:00 | CA_ITS ---
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 The visually estimated ejection fraction is between 35-40%. - No obvious valvular pathology seen on this study. Findings Procedure Information The study quality is limited by the patients inability to tolerate the test. Left Ventricle Normal left ventricular cavity size. There is normal left ventricular wall thickness. The left ventricular systolic function is moderately decreased. The visually estimated ejection fraction is between 35-40%. There is moderate global hypokinesis. Diastolic function is normal for age. Right Ventricle Moderately increased right ventricular cavity size. There is normal right ventricular systolic function. Atria Both atria are normal in size. Aortic Valve There is a normal trileaflet aortic valve. There is no aortic valve stenosis. There is no aortic valve regurgitation. Mitral Valve The mitral valve appears normal. There is no mitral valve regurgitation. There is no mitral valve stenosis. Pulmonic Valve The pulmonic valve is likely normal. Tricuspid Valve Normal tricuspid valve structure. There is trace tricuspid valve regurgitation. There is no evidence of pulmonary hypertension. Great Vessels The aorta was not well visualized. Venous The inferior vena cava is dilated. (on ventilator). Pericardium/Pleural There is no evidence of pericardial effusion. Prior Study Comparison No prior study available for comparison. Recommendations, Care & Conclusions No obvious valvular pathology seen on this study. Measurements 2D Linear Measurements IVSd: 0.70 0.6-0.9/0.6-1.0 cm LVIDd: 5.66 3.9-5.3/4.2-5.9 cm LVIDd Index: 3.04 2.4-3.2/2.2-3.1 cm/m2 LVIDs: 4.79 2.0-3.6 cm LVPWd: 0.56 0.7-1.1 cm LA Diam: 3.40 2.7-3.8/3.0-4.0 cm LAIDs Index: 1.83 1.5-2.3 cm/m2 LV Mass: 156.50 67-162/88-224 g LV Mass Index: 84.14 43-95/49-115 g/m2 LVOT Diam: 2.20 3.0+(-)1.3 cm 2D Systolic Function EF 4C: 35.20 >55% EF 2C: 42.30 >55% EF BiP: 39.30 >55% Mitral Valve MV Pk E: 0.83 MV PK A: 0.69 MV Decel Time: 192.00 E/A: 1.20 E'Lateral: 13.30 E'Medial: 9.46 E/E' Med: 8.70 E/E' Lat: 6.20 PHT: 56.00 MVA PHT: 3.93 Decel Power: 4.30 Aortic Valve AoV Pk Ronald: 1.30 AoV Pk Grad: 7.00 LVOT LVOT Pk Ronald: 0.96 LVOT Mn Ronald: 0.73 LVOT VTI: 0.17 LVOT Pk Grad: 4.00 LVOT Mn Grad: 2.00 LVOT Diam: 2.20 LVOT Area: 3.80 Diastolic Function MV Pk E: 0.83 MV Pk A: 0.69 E/A: 1.20 E'Medial: 9.46 E/E' Med: 8.70 E' Laterial: 13.30 E/E' Lat: 6.20 Right Ventricle TAPSE (mm): 19.40 TVS' Ronald: 11.10 Tricuspid Valve TR Pk Ronald: 2.17 TR Pk Grad: 19.00 RA Press: 15.00 RVSP: 34.00 Great Vessels Aorta Sinus of Valsalva: 3.80 2.0-3.5 cm Pulmonary Veins Pulm Vein S/D 1.70 Pulmonary Valve PV Pk Ronald: 0.87 Peak PV Grad: 3.00 Updated in Other Vendor System with Status of Final Robles Ruiz MD electronically signed on 02/11/2024 10:37:59 AM with status of Final
[2024-02-11] MEDS: Midazolam HCl/PF 2 MG/2 ML VIAL 4 MG IVPUSH (07:54)
[2024-02-11] MEDS: fentaNYL citrate/PF 100 MCG/2 ML VIAL 50 MCG IVPUSH (08:00)
--- NOTE | 2024-02-11 08:00 | ECG_ITS ---
Test Reason : wide complex Blood Pressure : / mmHG Vent. Rate : 092 BPM Atrial Rate : 092 BPM P-R Int : 172 ms QRS Dur : 100 ms QT Int : 472 ms P-R-T Axes : 042 076 058 degrees QTc Int : 583 ms Normal sinus rhythm Prolonged QT Abnormal ECG When compared with ECG of 11-FEB-2024 04:58, QT has lengthened Referred By: Eduard Richardson Electronically Signed By:RYAN ZHU
[2024-02-11] MEDS: propofoL 200 MG/20 ML VIAL 100 MG IVPUSH ×2 (08:02→08:50)
[2024-02-11] MEDS: Midazolam HCl/NS 50 MG/50 ML PLAST..BAG IVCONT ×2 (08:18→18:05)
--- NOTE | 2024-02-11 08:29 | ED.GENADULT ---
HPI - General Adult General Chief complaint: General Medical Stated complaint: withdrawals Time Seen by Provider: 02/11/24 00:31 Source: patient and old records reviewed Mode of arrival: EMS Limitations: no limitations History of Present Illness HPI narrative: This documentation is only used to document intubation procedure note. Quality: aching Relieving factors: none Exacerbating factors: none Associated symptoms: malaise Treatments prior to arrival: none Related Data Allergies Allergy/AdvReac Type Severity Reaction Status Date / Time No Known Allergies Allergy Verified 02/11/24 00:42 [facility] Past Medical History Medical History Substance abuse Social History Social History Smoked in Last 30 Days: Yes Use of substances other than those prescribed or required for medical reasons: Yes Substance Use Type: Crack/Cocaine Advance Directives: No Advance Directives Information Provided: Yes Do you have a plan to hurt others: No Plan Physical Exam ED Vital Signs: Vital Signs - 24 hr 02/11/24 00:36 02/11/24 02:29 02/11/24 03:02 Temperature 98.2 F 99.5 F Pulse Rate 119 H 116 H 85 Respiratory Rate 11 L 20 15 Blood Pressure 134/68 114/51 L 105/59 L Pulse Oximetry 95 94 95 Oxygen Delivery Method Room Air Room Air Room Air 02/11/24 04:01 02/11/24 05:01 02/11/24 06:00 Temperature 97.5 F Pulse Rate 77 73 73 Respiratory Rate 18 12 12 Blood Pressure 95/47 L 97/54 L 96/52 L Pulse Oximetry 97 98 100 Oxygen Delivery Method Room Air Room Air Room Air 02/11/24 07:12 Temperature 97.5 F Pulse Rate 104 H Respiratory Rate 25 H Blood Pressure 114/67 Pulse Oximetry Oxygen Delivery Method Room Air BMI result Body Mass Index 23.2 Medications Administered Generic Name Dose Route Start Last Admin Trade Name Freq PRN Reason Stop Dose Admin Sodium Chloride 1,000 mls @ 100 mls/hr 02/11/24 01:30 02/11/24 01:47 Ns IVCONT 100 mls/hr .Q10H MONICO Administration Discontinued Medications Generic Name Dose Route Start Last Admin Trade Name Freq PRN Reason Stop Dose Admin Magnesium Sulfate 2 gm in 50 mls @ 150 mls/hr 02/11/24 01:22 02/11/24 02:07 Magnesium Sulfate/H2o IV 02/11/24 01:41 Infused ONCE ONE Infusion Potassium Chloride 10 meq in 100 mls @ 100 mls/hr 02/11/24 05:15 02/11/24 07:47 Potassium Chloride/H20 IV 02/11/24 07:14 Infused Q1H MONICO Infusion Sodium Chloride 1,000 mls @ 999 mls/hr 02/11/24 05:48 02/11/24 05:50 Ns IV 02/11/24 06:48 999 mls/hr .Q1H1M ONE Administration Lorazepam 2 mg 02/11/24 00:55 02/11/24 01:12 Lorazepam 1 Mg Tablet PO 02/11/24 00:56 2 mg ONCE ONE Administration Lorazepam 2 mg 02/11/24 02:29 02/11/24 02:30 Lorazepam 2 Mg/Ml Vial IVPUSH 02/11/24 02:30 2 mg ONCE ONE Administration Lorazepam 2 mg 02/11/24 02:38 02/11/24 02:45 Lorazepam 2 Mg/Ml Vial IVPUSH 02/11/24 02:39 2 mg ONCE ONE Administration Lorazepam 2 mg 02/11/24 07:18 02/11/24 07:24 Lorazepam 2 Mg/Ml Vial IVPUSH 02/11/24 07:19 2 mg ONCE ONE Administration Lorazepam 2 mg 02/11/24 07:31 02/11/24 07:35 Lorazepam 2 Mg/Ml Vial IVPUSH 02/11/24 07:32 2 mg ONCE ONE Administration Methadone HCl 40 mg 02/11/24 01:15 02/11/24 01:12 Methadone Hcl 20 Mg/2 Ml Oral.Conc PO 02/11/24 01:16 40 mg ONCE ONE Administration Potassium Chloride 40 meq 02/11/24 01:27 02/11/24 01:47 Potassium Chloride Packet 20 Meq Packet PO 02/11/24 01:28 40 meq ONCE ONE Administration Procedures Intubation Intubation Type:: Emergency Endotracheal Intubation Intubation Date:: 02/11/24 Intubation Time:: 08:30 Time out performed: Yes sedative: Versed (Fentanyl 50 mcg IV was administrated.) Mg Given: 4 Laryngoscope: Denise ET Tube Size: 7.5 ET Tube Uncuffed: No Tube Secured Depth (cm): 23 Tube Secured Location: lips Tube Placement Confirmation: visualized tube passing through cords, equal breath sounds bilaterally, no breath sounds over epigastrium and confirmation by capnometry Patient Tolerated Procedure: well Intubation Complications: none Medical Decision Making Lab Data 02/11/24 01:07 02/11/24 01:07 Labs: Lab Results 02/11/24 Range/Units 01:07 WBC 12.0 H (4.8-10.8) X10*3/uL RBC 4.21 L (4.60-5.80) X10*6/uL Hgb 13.1 L (14.0-18.0) g/dl Hct 37.3 L (42.0-52.0) % MCV 88.6 (80.0-98.0) fL MCH 31.1 (27.0-33.0) pg MCHC 35.1 (31.0-36.0) g/dl RDW 13.3 (11.0-16.0) % Plt Count 296 (160-400) X10*3/uL MPV 10.4 (9.4-12.4) fL Immature Gran % (Auto) 0.4 (0.0-0.4) % Neut % (Auto) 82.7 H (45-73) % Lymph % (Auto) 8.8 L (20-40) % Hall % (Auto) 6.6 (2-11) % Eos % (Auto) 1.2 (0-4) % Baso % (Auto) 0.3 (0-2) % Lymph # (Auto) 1.1 L (1.2-4.9) X10*3/uL [place] # (Auto) 0.8 (0.1-1.2) X10*3/uL Eos # (Auto) 0.1 (0.0-0.4) X10*3/uL Baso # (Auto) 0.0 (0.0-0.2) X10*3/uL Abs Immat Gran (auto) 0.05 H (0.00-0.03) X10*3/uL Absolute Neuts (auto) 9.9 H (2.0-8.3) x10*3/uL Absolute Nucleated RBC 0.000 (0.0-0.012) X10*3/uL Nucleated RBC % (auto) 0.0 (0.0-0.2) /100WBC Sodium 137 (135-145) mmol/L Potassium 3.0 L (3.3-5.1) mmol/L Chloride 102 (96-108) mmol/L Carbon Dioxide 21 L (22-29) mmol/L Anion Gap 17 (12-20) BUN 15 (9-16) mg/dL Creatinine 0.77 (0.5-1.4) mg/dL Estim Creat Clear Calc 123.6 Estimated GFR > 60 Random Glucose 139 H (60-115) mg/dL Calcium 9.3 (8.4-10.2) mg/dL Magnesium 1.8 (1.6-2.6) mg/dL Total Bilirubin 0.5 (0.0-1.0) mg/dL Direct Bilirubin 0.2 (0.0-0.5) mg/dL AST 25 (5-37) U/L ALT 19 (0-40) U/L Alkaline Phosphatase 66 (39-117) U/L Total Protein 7.6 (6.5-8.0) g/dL Albumin 3.8 (3.5-5.0) g/dL Ethyl Alcohol < 10 mg/dL Discharge Plan Discharge Clinical Impression: Cocaine abuse, Opiate withdrawal, Long QT interval Patient Disposition: Still a Patient Print Language: Wallisian
--- NOTE | 2024-02-11 08:49 | ECG_ITS ---
Test Reason : QTc Monitoring Blood Pressure : / mmHG Vent. Rate : 068 BPM Atrial Rate : 068 BPM P-R Int : 158 ms QRS Dur : 110 ms QT Int : 564 ms P-R-T Axes : 000 067 046 degrees QTc Int : 599 ms Normal sinus rhythm Prolonged QT Abnormal ECG When compared to the previous EKG of same day, QT further prolonged Referred By: Марина Burns Electronically Signed By:RYAN ZHU
[2024-02-11 09:05] LABS: MANUAL DIFF FLAG NO
[2024-02-11 09:08] LABS: Venous Blood Gas Refer to POC result
[2024-02-11 09:09] LABS: Basophils Percent Auto 0.4 % (0-2); Eosinophils Absolute Auto 0.2 X10*3/uL (0.0-0.4); Eosinophils Percent Auto 2.2 % (0-4); Hematocrit 33.8 % (42.0-52.0); Hemoglobin 11.6 g/dl (14.0-18.0); Imm Gran Abs Auto 0.04 X10*3/uL (0.00-0.03); Imm Gran Pct Auto 0.5 % (0.0-0.4); Lymphocytes Absolute Auto 1.2 X10*3/uL (1.2-4.9); Lymphocytes Percent Auto 13.9 % (20-40); Mean Corpuscular HGB Conc 34.3 g/dl (31.0-36.0); Mean Corpuscular Volume 90.4 fL (80.0-98.0); Mean Platelet Volume 10.4 fL (9.4-12.4); Monocytes Absolute Auto 0.6 X10*3/uL (0.1-1.2); Monocytes Percent Auto 6.9 % (2-11); Neutrophils Absolute Auto 6.5 x10*3/uL (2.0-8.3); Neutrophils Percent Auto 76.1 % (45-73); Platelet Count 244 X10*3/uL (160-400); Red Blood Count 3.74 X10*6/uL (4.60-5.80); Red Cell Distribution Width 13.3 % (11.0-16.0); White Blood Count 8.6 X10*3/uL (4.8-10.8)
[2024-02-11 09:11] LABS: VBG Base Excess -1.7 mmol/L; VBG HCO3 23 mmol/L (22-26); VBG pCO2 41 mmHg; VBG pH 7.35 (7.32-7.43); VBG pO2 136 mmHg
[2024-02-11 09:30] LABS: Amphetamine Screen Urine POSITIVE (Not Detect); Barbiturates, Urine Not Detected (Not Detect); Benzodiazepines Screen Urine POSITIVE (Not Detect); Buprenorphine Scr Not Detected (Not Detect); Cannabinoid Screen Urine POSITIVE (Not Detect); Cocaine Screen Urine POSITIVE (Not Detect); Fentanyl, urine POSITIVE (Not Detect); Methadone Screen, Urine Positive (Not Detect); Opiate Screen Urine POSITIVE (Not Detect); Oxycodone Screen Urine Not Detected (Not Detect); Phencyclidine Screen Urine Not Detected (Not Detect)
[2024-02-11 09:33] LABS: Anion Gap 11 (12-20); Blood Urea Nitrogen 12 mg/dL (9-16); Carbon Dioxide 23 mmol/L (22-29); Chloride 111 mmol/L (96-108); Creatinine Clr Calc Pharmacy 142.1; Estimated Glomerular Filt Rate > 60; Glucose Random 80 mg/dL (60-115); Potassium 3.5 mmol/L (3.3-5.1); Sodium 141 mmol/L (135-145)
[2024-02-11 09:35] LABS: Troponin-I High Sensitivity 4.9 ng/L (<3.5-35.0)
[2024-02-11 09:37] LABS: Alanine Aminotransferase 15 U/L (0-40); Alkaline Phosphatase 55 U/L (39-117); Anion Gap 11 (12-20); Aspartate Amino Transferase 18 U/L (5-37); Bilirubin Total 0.5 mg/dL (0.0-1.0); Blood Urea Nitrogen 12 mg/dL (9-16); Carbon Dioxide 22 mmol/L (22-29); Chloride 112 mmol/L (96-108); Creatinine Clr Calc Pharmacy 142.1; Estimated Glomerular Filt Rate > 60; Glucose Random 81 mg/dL (60-115); Magnesium 1.9 mg/dL (1.6-2.6); Phosphorus 1.5 mg/dL (2.7-4.5); Potassium 3.6 mmol/L (3.3-5.1); Sodium 141 mmol/L (135-145)
[2024-02-11 09:39] LABS: Calcium 8.1 mg/dL (8.4-10.2)
--- NOTE | 2024-02-11 09:40 | PM.CNCAR ---
History of Present Illness History of Present Illness Date of Service: 02/11/24 Chief complaint: Agitation Narrative: This is a cardiology consultation regarding prolonged QT interval. Patient is already intubated and hence discussed with RN as well as Dr. Richardson. Essentially, patient with history of drug use who apparently came for hallucinations, diaphoretic and required several people to prevent the patient from hurting himself and eventually, got intubated. In this context, EKGs had shown QT prolongation hence we are consulted. Can not obtain any history as he is intubated. It seems that there is a strong history of drug use and he is actually positive for several drugs. He is also on lot of methadone. That could certainly lead to QT prolongation. However, no arrhythmias like VT. Review of Systems Review of Systems: Unable to obtain due to intubation PMFSH Past Medical History Medical History Substance abuse Family History Pertinent family history: Unable to obtain Social History Social History Smoked in Last 30 Days: Yes Use of substances other than those prescribed or required for medical reasons: Yes Substance Use Type: Crack/Cocaine Advance Directives: No Advance Directives Information Provided: Yes Do you have a plan to hurt others: No Plan Meds Allergies Allergy/AdvReac Type Severity Reaction Status Date / Time No Known Allergies Allergy Verified 02/11/24 00:42 Active Medications: Current Medications Chlorhexidine Gluconate (Chlorhexidine Gluc Oral Rinse 15 Ml Mouthwash) 15 ml BUCCAL Q8H [facility] Hydromorphone HCl (Hydromorphone Hcl 1 Mg/Ml Syringe) 0.5 mg IVPUSH Q6H PRN; Protocol PRN Reason: Pain, Moderate(Pain Scale 4-6) Sodium Chloride (Ns) 1,000 mls @ 100 mls/hr IVCONT .Q10H [facility] Last Admin: 02/11/24 01:47 Dose: 100 mls/hr Midazolam HCl (Versed) 50 mg in 50 mls @ 2 mls/hr IVCONT .Q24H [facility] Last Admin: 02/11/24 08:18 Dose: 2 mg/hr, 2 mls/hr Propofol (Diprivan) 1,000 mg in 100 mls @ 0 mls/hr IVCONT .Q0M [facility]; Protocol Norepinephrine Bitartrate (Levophed) 8 mg in 250 mls @ 0 mls/hr IV .Q0M [facility]; Protocol Sodium Chloride (Ns) 1,000 mls @ 999 mls/hr IV .Q1H1M [facility] Stop: 02/11/24 09:45 Physical Exam Vital Signs: Vital Signs: Last Vital Signs Temp 99.5 F 02/11/24 09:33 Pulse 85 02/11/24 09:33 Resp 20 02/11/24 09:33 BP 103/60 02/11/24 09:33 Pulse Ox 98 02/11/24 09:33 O2 Del Method Mechanical Ventil ation 02/11/24 09:33 FiO2 50 02/11/24 08:40 BMI result Body Mass Index 23.2 Const: General: comfortable and no acute distress Orientation/consciousness: No patient oriented x3 HEENT: Other: Unremarkable Head: Yes normal to inspection Neck: Neck: Yes normal visual inspection Chest: Chest palpation & inspection: normal inspection of the chest Resp: Auscultation: clear to auscultation bilaterally Cardio: Palpation: normal PMI Heart sounds: S1 normal heart sound present, S2 normal heart sound present, no gallops, no murmurs and no rubs GI: Palpation (GI): Soft to palpation Back/Spine/Pelvis: Other: unremarkable Skin: General skin exam: no rashes or lesions noted Neuro: General: No patient oriented x3 Extrem: General: Yes normal to inspection Psych: Mental Status: mental status grossly abnormal Objective Labs and Meds 02/11/24 09:01 02/11/24 09:01 Lab results: Laboratory Results - last 24 hr 02/11/24 02/11/24 02/11/24 01:07 09:01 09:01 WBC 12.0 H 8.6 RBC 4.21 L 3.74 L Hgb 13.1 L 11.6 L Hct 37.3 L 33.8 L MCV 88.6 90.4 MCH 31.1 31.0 MCHC 35.1 34.3 RDW 13.3 13.3 Plt Count 296 244 MPV 10.4 10.4 Immature Gran % (Auto) 0.4 0.5 H Neut % (Auto) 82.7 H 76.1 H Lymph % (Auto) 8.8 L 13.9 L [place] % (Auto) 6.6 6.9 Eos % (Auto) 1.2 2.2 Baso % (Auto) 0.3 0.4 Lymph # (Auto) 1.1 L 1.2 [place] # (Auto) 0.8 0.6 Eos # (Auto) 0.1 0.2 Baso # (Auto) 0.0 0.0 Abs Immat Gran (auto) 0.05 H 0.04 H Absolute Neuts (auto) 9.9 H 6.5 Absolute Nucleated RBC 0.000 0.000 Nucleated RBC % (auto) 0.0 0.0 VBG pH VBG pCO2 VBG pO2 VBG HCO3 VBG O2 Saturation VBG Base Excess Sodium 137 141 141 Potassium 3.0 L 3.6 Chloride 102 Carbon Dioxide 21 L Anion Gap 17 BUN 15 Creatinine 0.77 Estim Creat Clear Calc 123.6 Estimated GFR > 60 Random Glucose 139 H Calcium 9.3 Phosphorus Magnesium 1.8 Total Bilirubin 0.5 Direct Bilirubin 0.2 AST 25 ALT 19 Alkaline Phosphatase 66 Total Creatine Kinase Troponin I High Sens Total Protein 7.6 Albumin 3.8 Urine Opiates Screen Ur Buprenorphine Scrn Ur Oxycodone Screen Urine Methadone Screen Urine Fentanyl Screen Ur Barbiturates Screen Ur Phencyclidine Scrn Ur Amphetamines Screen U Benzodiazepines Scrn Urine Cocaine Screen U Marijuana (THC) Screen Ethyl Alcohol < 10 02/11/24 02/11/24 02/11/24 09:01 09:01 09:01 WBC RBC Hgb Hct MCV MCH MCHC RDW Plt Count MPV Immature Gran % (Auto) Neut % (Auto) Lymph % (Auto) [place] % (Auto) Eos % (Auto) Baso % (Auto) Lymph # (Auto) [place] # (Auto) Eos # (Auto) Baso # (Auto) Abs Immat Gran (auto) Absolute Neuts (auto) Absolute Nucleated RBC Nucleated RBC % (auto) VBG pH VBG pCO2 VBG pO2 VBG HCO3 VBG O2 Saturation VBG Base Excess Sodium Potassium 3.5 Chloride 112 H 111 H Carbon Dioxide 22 23 Anion Gap 11 L BUN Creatinine Estim Creat Clear Calc Estimated GFR Random Glucose Calcium Phosphorus Magnesium Total Bilirubin Direct Bilirubin AST ALT Alkaline Phosphatase Total Creatine Kinase Troponin I High Sens Total Protein Albumin Urine Opiates Screen Ur Buprenorphine Scrn Ur Oxycodone Screen Urine Methadone Screen Urine Fentanyl Screen Ur Barbiturates Screen Ur Phencyclidine Scrn Ur Amphetamines Screen U Benzodiazepines Scrn Urine Cocaine Screen U Marijuana (THC) Screen Ethyl Alcohol 02/11/24 02/11/24 02/11/24 09:01 09:01 09:01 WBC RBC Hgb Hct MCV MCH MCHC RDW Plt Count MPV Immature Gran % (Auto) Neut % (Auto) Lymph % (Auto) [place] % (Auto) Eos % (Auto) Baso % (Auto) Lymph # (Auto) [place] # (Auto) Eos # (Auto) Baso # (Auto) Abs Immat Gran (auto) Absolute Neuts (auto) Absolute Nucleated RBC Nucleated RBC % (auto) VBG pH VBG pCO2 VBG pO2 VBG HCO3 VBG O2 Saturation VBG Base Excess Sodium Potassium Chloride Carbon Dioxide Anion Gap 11 L BUN 12 12 Creatinine 0.67 0.67 Estim Creat Clear Calc 142.1 Estimated GFR Random Glucose Calcium Phosphorus Magnesium Total Bilirubin Direct Bilirubin AST ALT Alkaline Phosphatase Total Creatine Kinase Troponin I High Sens Total Protein Albumin Urine Opiates Screen Ur Buprenorphine Scrn Ur Oxycodone Screen Urine Methadone Screen Urine Fentanyl Screen Ur Barbiturates Screen Ur Phencyclidine Scrn Ur Amphetamines Screen U Benzodiazepines Scrn Urine Cocaine Screen U Marijuana (THC) Screen Ethyl Alcohol 02/11/24 02/11/24 02/11/24 09:01 09:01 09:01 WBC RBC Hgb Hct MCV MCH MCHC RDW Plt Count MPV Immature Gran % (Auto) Neut % (Auto) Lymph % (Auto) [place] % (Auto) Eos % (Auto) Baso % (Auto) Lymph # (Auto) [place] # (Auto) Eos # (Auto) Baso # (Auto) Abs Immat Gran (auto) Absolute Neuts (auto) Absolute Nucleated RBC Nucleated RBC % (auto) VBG pH VBG pCO2 VBG pO2 VBG HCO3 VBG O2 Saturation VBG Base Excess Sodium Potassium Chloride Carbon Dioxide Anion Gap BUN Creatinine Estim Creat Clear Calc 142.1 Estimated GFR > 60 > 60 Random Glucose 81 80 Calcium 8.0 L D Phosphorus Magnesium Total Bilirubin Direct Bilirubin AST ALT Alkaline Phosphatase Total Creatine Kinase Troponin I High Sens Total Protein Albumin Urine Opiates Screen Ur Buprenorphine Scrn Ur Oxycodone Screen Urine Methadone Screen Urine Fentanyl Screen Ur Barbiturates Screen Ur Phencyclidine Scrn Ur Amphetamines Screen U Benzodiazepines Scrn Urine Cocaine Screen U Marijuana (THC) Screen Ethyl Alcohol 02/11/24 02/11/24 02/11/24 09:01 09:01 09:03 WBC RBC Hgb Hct MCV MCH MCHC RDW Plt Count MPV Immature Gran % (Auto) Neut % (Auto) Lymph % (Auto) [place] % (Auto) Eos % (Auto) Baso % (Auto) Lymph # (Auto) [place] # (Auto) Eos # (Auto) Baso # (Auto) Abs Immat Gran (auto) Absolute Neuts (auto) Absolute Nucleated RBC Nucleated RBC % (auto) VBG pH 7.35 VBG pCO2 41 VBG pO2 136 VBG HCO3 23 VBG O2 Saturation 100.0 VBG Base Excess -1.7 Sodium Potassium Chloride Carbon Dioxide Anion Gap BUN Creatinine Estim Creat Clear Calc Estimated GFR Random Glucose Calcium 8.1 L Phosphorus 1.5 L Magnesium 1.9 2.0 Total Bilirubin 0.5 Direct Bilirubin AST 18 ALT 15 Alkaline Phosphatase 55 Total Creatine Kinase 114 Troponin I High Sens 4.9 Total Protein 6.0 L Albumin 3.0 L Urine Opiates Screen Ur Buprenorphine Scrn Ur Oxycodone Screen Urine Methadone Screen Urine Fentanyl Screen Ur Barbiturates Screen Ur Phencyclidine Scrn Ur Amphetamines Screen U Benzodiazepines Scrn Urine Cocaine Screen U Marijuana (THC) Screen Ethyl Alcohol 02/11/24 09:13 WBC RBC Hgb Hct MCV MCH MCHC RDW Plt Count MPV Immature Gran % (Auto) Neut % (Auto) Lymph % (Auto) [place] % (Auto) Eos % (Auto) Baso % (Auto) Lymph # (Auto) [place] # (Auto) Eos # (Auto) Baso # (Auto) Abs Immat Gran (auto) Absolute Neuts (auto) Absolute Nucleated RBC Nucleated RBC % (auto) VBG pH VBG pCO2 VBG pO2 VBG HCO3 VBG O2 Saturation VBG Base Excess Sodium Potassium Chloride Carbon Dioxide Anion Gap BUN Creatinine Estim Creat Clear Calc Estimated GFR Random Glucose Calcium Phosphorus Magnesium Total Bilirubin Direct Bilirubin AST ALT Alkaline Phosphatase Total Creatine Kinase Troponin I High Sens Total Protein Albumin Urine Opiates Screen POSITIVE H Ur Buprenorphine Scrn Not Detected Ur Oxycodone Screen Not Detected Urine Methadone Screen Positive H Urine Fentanyl Screen POSITIVE H Ur Barbiturates Screen Not Detected Ur Phencyclidine Scrn Not Detected Ur Amphetamines Screen POSITIVE H U Benzodiazepines Scrn POSITIVE H Urine Cocaine Screen POSITIVE H U Marijuana (THC) Screen POSITIVE H Ethyl Alcohol ECG Interpretation: In the initial EKG, sinus tachycardia at 01:16/Min with corrected QT of around 530 milliseconds. In the most recent EKG, automated corrected QT calculation is 583 milliseconds. Will need to be manually verified. Imaging Radiologist's impression: Impressions Chest X-Ray 02/11/24 08:52 IMPRESSION: Incomplete coverage of the chest. The ET tube is just past the thoracic inlet. Assessment and Plan (1) Cocaine abuse: Status: Acute (2) Opiate withdrawal: Status: Acute (3) Long QT interval: Status: Acute (4) Hypokalemia: Status: Acute (5) Methadone use: Status: Acute Plan Labs with hypokalemia of 3 on arrival but improved to 3.5 at this time. Magnesium level is okay. High sensitivity troponin 4.9, within normal limits. Tox screen is positive for opiates, methadone, fentanyl, amphetamines, benzodiazepine, cocaine, marijuana. EKG findings are mainly due to drugs including methadone. There is increased chance of ventricular tachycardia. Avoid any medication to slow down the heart rate which increases the chance of above. With time would expect the QT interval to improve. May obtain an echocardiogram for cardiac function. Discussed with Dr. Richardson. Procedures Date of Service Date of Service: 02/11/24
[2024-02-11] MEDS: propofoL 1,000 MG/100 ML VIAL 12.83 MG IVCONT (09:52)
[2024-02-11] MEDS: propofoL 200 MG/20 ML VIAL 20 MG IVPUSH ×2 (10:01→18:38)
--- NOTE | 2024-02-11 10:18 | PHA.MEDREC ---
Pharmacy Consult ? Medication Reconciliation Pharmacy has completed the medication reconciliation. Unable to speak with patient, intubated. Called and verified Methadone dose, no claim history.
--- NOTE | 2024-02-11 10:18 | HE.PHANOTE ---
Methadone Verification Contacted DELIO Barnett ). Patient Received last dose on 02/07/24 of 220 mg. Spoke with Chantel GOMEZ.
--- NOTE | 2024-02-11 10:20 | P.HPCC_ITS ---
History of Present Illness Date of Service: 02/11/24 Chief Complaint: Agitation Patient is a 43 Y M with polysubstance misuse, prior hepatitis C, and psychiatric comorbidities, presenting initially to emergency department on 02/09 with auditory and visual hallucination in the setting of reported cocaine use and self-reported methadone withdrawal; in emergency department, patient found to have QTc prolongation; patient developed worsening agitation, necessitating intubation Review of Systems 2 Review of Systems: Yes unobtainable due to endotracheal tube and Unobtainable due to mental condition PMFSH Past Medical History Medical History Substance abuse Social History Social History Patient Tobacco Use Status: Tobacco use Unknown Substance Use Type: Crack/Cocaine Meds Allergies Allergy/AdvReac Type Severity Reaction Status Date / Time No Known Allergies Allergy Verified 02/11/24 00:42 Active Medications: Current Medications Chlorhexidine Gluconate (Chlorhexidine Gluc Oral Rinse 15 Ml Mouthwash) 15 ml BUCCAL Q8H [facility] Hydromorphone HCl (Hydromorphone Hcl 1 Mg/Ml Syringe) 0.5 mg IVPUSH Q6H PRN; Protocol PRN Reason: Pain, Moderate(Pain Scale 4-6) Sodium Chloride (Ns) 1,000 mls @ 100 mls/hr IVCONT .Q10H [facility] Last Admin: 02/11/24 01:47 Dose: 100 mls/hr Midazolam HCl (Versed) 50 mg in 50 mls @ 2 mls/hr IVCONT .Q24H [facility] Last Admin: 02/11/24 08:18 Dose: 2 mg/hr, 2 mls/hr Propofol (Diprivan) 1,000 mg in 100 mls @ 0 mls/hr IVCONT .Q0M [facility]; Protocol Last Admin: 02/11/24 09:52 Dose: 30 mcg/kg/min, 12.83 mls/hr Norepinephrine Bitartrate (Levophed) 8 mg in 250 mls @ 0 mls/hr IV .Q0M [facility]; Protocol Home Medications ?Medication ?Instructions ?Recorded ?Confirmed ?Last Taken ?Type methadone 10 mg/mL oral concentrate 220 mg PO DAILY 02/11/24 02/11/24 02/07/24 History Physical Exam 2 Vital Signs: Vital Signs: Last Vital Signs Temp 99.5 F 02/11/24 09:33 Pulse 87 02/11/24 10:01 Resp 20 02/11/24 10:01 BP 105/64 02/11/24 10:01 Pulse Ox 97 02/11/24 09:52 O2 Del Method Mechanical Ventil ation 02/11/24 10:01 FiO2 50 02/11/24 10:01 BMI result Body Mass Index 23.2 Const: Other: intubated, sedated; intermittent agitation General: no acute distress and well developed HEENT: Head: Yes normal to inspection, Yes normocephalic and Yes atraumatic Eyes: General: appearance normal, both eyes and all related structures Neck: Neck: Yes normal visual inspection, Yes full ROM, Yes no meningeal signs, Yes trachea midline and Yes supple Chest: Chest palpation & inspection: normal inspection of the chest Resp: Other: no appreciable rales, rhonchi, wheezing Effort & Inspection: normal respiratory effort Cardio: Rate: regular rate Rhythm: regular rhythm GI: Inspection: Yes normal to inspection, No Abdominal wall edema and No distended Palpation (GI): Soft to palpation, not firm, nontender, no guarding and not rigid : Male General Exam: Yes normal external exam Skin: Other: some appreciable excoriations throughout Neuro: Other: unable to participate in neurological exam General: tone normal, moves all extremities, no meningeal signs and no focal motor deficits Extrem: Other: some appreciable non-pitting edema bilateral hands General: Yes normal to inspection, Yes full ROM and Yes capillary refill normal Psych: Other: intermittent agitation Appearance: disheveled Results Labs 02/11/24 09:01 02/11/24 09:01 Labs: Laboratory Results - last 24 hr 02/11/24 02/11/24 02/11/24 01:07 09:01 09:01 MCV 88.6 90.4 MCH 31.1 31.0 MCHC 35.1 34.3 RDW 13.3 13.3 Plt Count 296 244 MPV 10.4 10.4 Immature Gran % (Auto) 0.4 0.5 H Neut % (Auto) 82.7 H 76.1 H Lymph % (Auto) 8.8 L 13.9 L [place] % (Auto) 6.6 6.9 Eos % (Auto) 1.2 2.2 Baso % (Auto) 0.3 0.4 Lymph # (Auto) 1.1 L 1.2 [place] # (Auto) 0.8 0.6 Eos # (Auto) 0.1 0.2 Baso # (Auto) 0.0 0.0 Abs Immat Gran (auto) 0.05 H 0.04 H Absolute Neuts (auto) 9.9 H 6.5 Absolute Nucleated RBC 0.000 0.000 Nucleated RBC % (auto) 0.0 0.0 VBG pH VBG pCO2 VBG pO2 VBG HCO3 VBG O2 Saturation VBG Base Excess Anion Gap 17 11 L 11 L Estim Creat Clear Calc 123.6 142.1 Estimated GFR > 60 Random Glucose 139 H Calcium 9.3 Phosphorus Magnesium 1.8 Total Bilirubin 0.5 Direct Bilirubin 0.2 AST 25 ALT 19 Alkaline Phosphatase 66 Total Creatine Kinase Troponin I High Sens Total Protein 7.6 Albumin 3.8 Urine Opiates Screen Ur Buprenorphine Scrn Ur Oxycodone Screen Urine Methadone Screen Urine Fentanyl Screen Ur Barbiturates Screen Ur Phencyclidine Scrn Ur Amphetamines Screen U Benzodiazepines Scrn Urine Cocaine Screen U Marijuana (THC) Screen Ethyl Alcohol < 10 02/11/24 02/11/24 02/11/24 09:01 09:01 09:01 MCV MCH MCHC RDW Plt Count MPV Immature Gran % (Auto) Neut % (Auto) Lymph % (Auto) [place] % (Auto) Eos % (Auto) Baso % (Auto) Lymph # (Auto) [place] # (Auto) Eos # (Auto) Baso # (Auto) Abs Immat Gran (auto) Absolute Neuts (auto) Absolute Nucleated RBC Nucleated RBC % (auto) VBG pH VBG pCO2 VBG pO2 VBG HCO3 VBG O2 Saturation VBG Base Excess Anion Gap Estim Creat Clear Calc 142.1 Estimated GFR > 60 > 60 Random Glucose 81 80 Calcium 8.0 L D Phosphorus Magnesium Total Bilirubin Direct Bilirubin AST ALT Alkaline Phosphatase Total Creatine Kinase Troponin I High Sens Total Protein Albumin Urine Opiates Screen Ur Buprenorphine Scrn Ur Oxycodone Screen Urine Methadone Screen Urine Fentanyl Screen Ur Barbiturates Screen Ur Phencyclidine Scrn Ur Amphetamines Screen U Benzodiazepines Scrn Urine Cocaine Screen U Marijuana (THC) Screen Ethyl Alcohol 02/11/24 02/11/24 02/11/24 09:01 09:01 09:03 MCV MCH MCHC RDW Plt Count MPV Immature Gran % (Auto) Neut % (Auto) Lymph % (Auto) [place] % (Auto) Eos % (Auto) Baso % (Auto) Lymph # (Auto) [place] # (Auto) Eos # (Auto) Baso # (Auto) Abs Immat Gran (auto) Absolute Neuts (auto) Absolute Nucleated RBC Nucleated RBC % (auto) VBG pH 7.35 VBG pCO2 41 VBG pO2 136 VBG HCO3 23 VBG O2 Saturation 100.0 VBG Base Excess -1.7 Anion Gap Estim Creat Clear Calc Estimated GFR Random Glucose Calcium 8.1 L Phosphorus 1.5 L Magnesium 1.9 2.0 Total Bilirubin 0.5 Direct Bilirubin AST 18 ALT 15 Alkaline Phosphatase 55 Total Creatine Kinase 114 Troponin I High Sens 4.9 Total Protein 6.0 L Albumin 3.0 L Urine Opiates Screen Ur Buprenorphine Scrn Ur Oxycodone Screen Urine Methadone Screen Urine Fentanyl Screen Ur Barbiturates Screen Ur Phencyclidine Scrn Ur Amphetamines Screen U Benzodiazepines Scrn Urine Cocaine Screen U Marijuana (THC) Screen Ethyl Alcohol 02/11/24 09:13 MCV MCH MCHC RDW Plt Count MPV Immature Gran % (Auto) Neut % (Auto) Lymph % (Auto) [place] % (Auto) Eos % (Auto) Baso % (Auto) Lymph # (Auto) [place] # (Auto) Eos # (Auto) Baso # (Auto) Abs Immat Gran (auto) Absolute Neuts (auto) Absolute Nucleated RBC Nucleated RBC % (auto) VBG pH VBG pCO2 VBG pO2 VBG HCO3 VBG O2 Saturation VBG Base Excess Anion Gap Estim Creat Clear Calc Estimated GFR Random Glucose Calcium Phosphorus Magnesium Total Bilirubin Direct Bilirubin AST ALT Alkaline Phosphatase Total Creatine Kinase Troponin I High Sens Total Protein Albumin Urine Opiates Screen POSITIVE H Ur Buprenorphine Scrn Not Detected Ur Oxycodone Screen Not Detected Urine Methadone Screen Positive H Urine Fentanyl Screen POSITIVE H Ur Barbiturates Screen Not Detected Ur Phencyclidine Scrn Not Detected Ur Amphetamines Screen POSITIVE H U Benzodiazepines Scrn POSITIVE H Urine Cocaine Screen POSITIVE H U Marijuana (THC) Screen POSITIVE H Ethyl Alcohol Imaging Radiologist's Impressions: Impressions Chest X-Ray 02/11/24 08:52 IMPRESSION: Incomplete coverage of the chest. The ET tube is just past the thoracic inlet. Assessment and Plan (1) Methadone use: Status: Acute (2) Long QT interval: Status: Acute (3) Opiate withdrawal: Status: Acute (4) Cocaine abuse: Status: Acute Plan Patient is a 43 Y M with polysubstance misuse, prior hepatitis C, and psychiatric comorbidities, presenting initially to emergency department on 02/09 with auditory and visual hallucination in the setting of reported cocaine use and self-reported methadone withdrawal, found to be severely agitated, intubated N: intubated, sedated w/ propofol, midazolam, fentanyl gtt; wean as tolerated CV: hypotension, likely related to sedation; QTc prolongation; daily EKG, very close monitoring of electrolytes; avoid QTc prolonging agents R: intubated; wean as tolerated GI: no acute issues : NPO; no acute issues H: no acute issues; chemical DVT prophylaxis ID: no acute issues E: no acute issues P: agitation, hallucinations in setting of cocaine use, opioid withdrawal; judicious use of antipsychotics, dexmedetomidine
[2024-02-11] MEDS: Chlorhexidine Gluc Oral Rinse 15 ML MOUTHWASH BUCCAL ×2 (10:50→15:49)
[2024-02-11] MEDS: Norepinephrine Bitartrate/D5W 8 MG/250 ML PLAST..BAG 6.68 MG IV (11:28)
[2024-02-11] MEDS: Calcium Gluconate/NaCl,Iso-Osm 1 GM/50 ML PLAST..BAG IV (11:31)
--- NOTE | 2024-02-11 11:37 | P.CDIM_ITS ---
PROVIDER RESPONSE TEXT: To clarify, the appropriate diagnosis supported by the clinical indicators: Hypokalemia: Resolved QUERY TEXT: PHYSICIAN'S DOCUMENTATION REQUEST Date of Query: 02/11/2024 11:17 AM EDT Patient Name: Olvin Hendrickson Admit Date: 02/11/2024 Dear Teri Davis, A review of the medical record indicates additional documentation may be needed. Please review below and update the documentation accordingly. Clinical Indicators: LABS: potassium 3.0 L Klor-Con Based on the above, is there a diagnosis that correlates with these lab findings: Hypokalemia resolved, possible, suspected Labs indicate a diagnosis of (please specify) Other (explain) Clinically unable to determine (explain) Thank you, Hermelinda Moreira, CCS, CDIS Use of terms such as suspected, likely, concern for, or probable (associated with a specific diagnosi s that is being evaluated, monitored, or treated as if it exists) are acceptable and can be coded in the inpatient se tting, when documented at the time of discharge. Please use your independent medical judgment in providing your response. THIS QUERY IS PART OF THE PERMANENT MEDICAL RECORD
[2024-02-11] MEDS: Enoxaparin Sodium 40 MG/0.4 ML SYRINGE SUBCUT (11:40)
--- NOTE | 2024-02-11 12:25 | W.PM.CCHP ---
Procedures Date of Service Date of Service: 02/11/24 Central Line Placement Right IJ: Consent for Procedure: Emergent-no informed consent obtained Time out performed: Yes Sterile Technique Used: Yes Patient placed on monitor/pulse ox: Yes MD prep: mask, gown and gloves Central line prep: Chlorhexidine scrub Ultrasound used for placement: Yes Central line lumen inserted: triple Post procedure: sutured in place, good blood return, all ports aspirated, flushed, capped and sterile dressing applied Post procedure x-ray: other (pending chest x-ray) Patient tolerated procedure: well Complications: none
[2024-02-11] MEDS: Potassium Phosphate/NS 15 MMOL/250 ML PLAST..BAG 62.5 MMOL IV (12:45)
[2024-02-11] MEDS: Albumin Human 25 % 50 ML 100 ML IV (12:50)
[2024-02-11] MEDS: Lactated Ringers 1,000 ML 500 ML IV (13:56)
[2024-02-11] MEDS: propofoL 1,000 MG/100 ML VIAL 17.11 MG IVCONT (14:17)
--- NOTE | 2024-02-11 14:31 | HO.WOUND ---
Wound Consult: Initial 43yr old?[place] [facility] [place] - See progress notes and H&P for detailed history.? Wound consult placed for Bilateral Hands and Bilateral Heels and Right Foot.? Patient intubated and sedated.? Left Heel Right Heel Bilateral Heels assessed - pink intact blanchable tissue to the heels no pressure injuries noted - both achilles areas are noted for dry scabbed resolving wounds. These are not consistent with pressure and are likley adrasions secondary to shoe friction. Treated with topical foam dressing to allow for moist wound healing and to protect from friction and pressure. Left hand Left hand and right wrist noted for linear abrasions - etiology unknown - there is bilateral hand swelling noted but no concern for infection at this time. The wound beds are dried - cleansed and hydrocolloid applied to aid in moist wound healing and autolytic debridement. May be changed every 3 days and PRN. Right Foot is noted for a small stable scab on the anterior side - no erythema noted - scab is stable and does not need topical intervention at this time. Recommendations: 1. Turn and Reposition every 2 hours and as needed for patient comfort.? Use pillows or wedges to support off loading positions. 2. Off Load all bony prominences with use of pillows and heel boots if needed.? Apply Preventative foams where needed. ? 3. Monitor for incontinence and moisture control, use barrier creams when needed for prevention and treatment. 4. Provide adequate and supplemental nutrition.? 5. Order or Continue low air loss mattress. 6. When applicable maintain blood glucose levels per Providers order. 7. Left hand and right wrist - Cleanse with NS pat dry. apply skin prep to periwound, use cut to size hydrocolloid dressing, change every 3 days and PRN. 8. Bilateral Heels and Achilles - Cleanse with routine bathing, dry well. cover with foam dressing peel back and assess Q shift and change every three days. Ensure heels are off of bed surface with use of pillows. Re-consult wound care Nurse for wound deterioration or wound changes.
[2024-02-11] MEDS: Magnesium Sulfate/D5W 1 GM/100 ML PIGGYBACK IV ×2 (15:49→17:18)
[2024-02-11 16:01] LABS: TSH reflex Free T4 0.47 uIU/mL (0.32-4.0)
[2024-02-11] MEDS: fentaNYL citrate/NS 1,000 MCG/100 ML PLAST..BAG 2.5 MCG IVCONT (16:59)
[2024-02-11] MEDS: EPINEPHrine 5 MG in Dextrose 5 % 250 ML 43.64 MG IVCONT (17:07)
[2024-02-11] MEDS: HYDROmorphone HCl 1 MG/ML SYRINGE 0.5 MG IVPUSH (17:59)
[2024-02-11] MEDS: Midazolam HCl/PF 2 MG/2 ML VIAL IVPUSH (17:59)
--- NOTE | 2024-02-11 18:00 | ECG_ITS ---
Test Reason : QTc Monitoring Blood Pressure : / mmHG Vent. Rate : 100 BPM Atrial Rate : 025 BPM P-R Int : 000 ms QRS Dur : 162 ms QT Int : 432 ms P-R-T Axes : 000 -85 078 degrees QTc Int : 557 ms Probably idioventricular rhythm Left axis deviation Right bundle branch block T wave abnormality, consider lateral ischemia Abnormal ECG When compared to the previous EKG of same day, rhythm change Referred By: Марина Burns Electronically Signed By:RYAN ZHU
[2024-02-11] MEDS: propofoL 1,000 MG/100 ML VIAL 21.39 MG IVCONT (19:26)
[2024-02-11 19:38] LABS: VBG HCO3 19 mmol/L (22-26); VBG pCO2 40 mmHg; VBG pH 7.28 (7.32-7.43); VBG pO2 46 mmHg
--- NOTE | 2024-02-11 19:47 | PC.NURSE ---
around 1829 pt began to have on/off sporadic seizures for approx 3-8sec each. MD informed then video called via [employer]. meds administered as ordered. around 1849 pt went into Vtach. No pulse was found and CPR was started and pricila tomlinson called overhead. staff at bedside assisting with code blue. ED provider at bedside. see code blue notes, provider notes and all other documentation for more details.
--- NOTE | 2024-02-11 19:49 | PC.RT ---
Pt started to have, what looked like, spastic seizure episodes every 45 seconds or so. Upon an attempt of an ABG, the pt went into pulseless Vtach and CPR was started. The code lasted for 45 minutes. ETCO2 ended up increasing to the 70s, I bagged the pt for ten minutes before placing back on the vent with an increased RR to inhibit the ETCO2 climb. Pt is stable
[2024-02-11] MEDS: EPINEPHrine 5 MG in Dextrose 5 % 250 ML 130.91 MG IVCONT (19:59)
[2024-02-11 20:10] LABS: Anion Gap 14 (12-20); Blood Urea Nitrogen 13 mg/dL (9-16); Calcium 8.1 mg/dL (8.4-10.2); Carbon Dioxide 19 mmol/L (22-29); Chloride 109 mmol/L (96-108); Creatinine Clr Calc Pharmacy 90.7; Estimated Glomerular Filt Rate > 60; Glucose Random 260 mg/dL (60-115); Phosphorus 3.8 mg/dL (2.7-4.5); Potassium 3.7 mmol/L (3.3-5.1); Sodium 138 mmol/L (135-145)
--- NOTE | 2024-02-11 20:23 | ECG_ITS ---
Test Reason : post arrest Blood Pressure : / mmHG Vent. Rate : 090 BPM Atrial Rate : 085 BPM P-R Int : 256 ms QRS Dur : 134 ms QT Int : 420 ms P-R-T Axes : 245 -67 083 degrees QTc Int : 513 ms Probably idioventricular rhythm Abnormal ECG No significant changes when compared with the previous EKG of same day Referred By: Марина Burns Electronically Signed By:RYAN ZHU
[2024-02-11] MEDS: Calcium Chloride 1 GM/10 ML SYRINGE IVPUSH ×2 (20:35→22:53)
[2024-02-11] MEDS: Norepinephrine Bitartrate/D5W 8 MG/250 ML PLAST..BAG 120.32 MG IV (20:48)
[2024-02-11] MEDS: fentaNYL citrate/NS 1,000 MCG/100 ML PLAST..BAG 20 MCG IVCONT (20:52)
[2024-02-11] MEDS: EPINEPHrine 5 MG in Dextrose 5 % 250 ML 261.81 MG IVCONT (21:01)
[2024-02-11 21:25] LABS: Lactic Acid 8.7 mmol/L (0.5-2.0)
[2024-02-11] MEDS: Sodium Bicarbonate 8.4% 50 MEQ/50 ML VIAL IVPUSH ×3 (21:25→22:56)
[2024-02-11 21:37] LABS: Troponin-I High Sensitivity 8.8 ng/L (<3.5-35.0)
[2024-02-11] MEDS: DOPamine HCL/D5W 400 MG/250 ML PLAST..BAG 13.37 MG IVCONT (21:55)
[2024-02-11] MEDS: EPINEPHrine 5 MG in Dextrose 5 % 250 ML 436.36 MG IVCONT ×3 (22:00→22:48)
[2024-02-11] MEDS: Sodium Bicarbonate 8.4% 150 MEQ in Dextrose 5 % 850 ML 100 MEQ IV (22:17)
[2024-02-11 22:18] LABS: Venous Blood Gas Refer to POC result
[2024-02-11] MEDS: Vasopressin 20 UNIT/100 ML INFUS..BTL 12 UNIT IVCONT (22:29)
[2024-02-11 22:35] LABS: ABG Base Excess -17.3 mmol/L; ABG HCO3 12 mmol/L (22-26); ABG pCO2 42 mmHg (32-45); ABG pH 7.06 (7.35-7.45); ABG pO2 99 mmHg (83-108)
[2024-02-11] MEDS: Lidocaine HCl/PF 100 MG/5 ML SYRINGE IV (22:35)
[2024-02-11] MEDS: Norepinephrine Bitartrate/D5W 8 MG/250 ML PLAST..BAG 133.69 MG IV (22:49)
[2024-02-11] MEDS: Albumin Human 25 % 100 ML 400 ML IV ×2 (23:03→23:19)
[2024-02-11 23:11] LABS: Reflex Lactate? Lactic Acid Added
[2024-02-11] MEDS: vancomycin HCL 1,500 MG in 0.9 % Sodium Chloride 500 ML 333.33 MG IV (23:35)
[2024-02-11] MEDS: Piperacillin Sodium/Tazobactam 3.375 GM in 0.9 % Sodium Chloride 50 ML IV (23:41)
[2024-02-12] VITALS (96 sets, daily range): BP systolic 60–122; BP diastolic 33–67; PULSE 69–132; RESP 24–26; TEMP 34.8–38.1; O2SAT 80–96; BMI 23.2
--- NOTE | 2024-02-12 | ECG_ITS ---
Test Reason : s/p Cardiac Arrest Blood Pressure : / mmHG Vent. Rate : 079 BPM Atrial Rate : 000 BPM P-R Int : 000 ms QRS Dur : 128 ms QT Int : 436 ms P-R-T Axes : 000 -80 091 degrees QTc Int : 499 ms Idioventricular rhythm Abnormal ECG No significant changes when compared with the previous EKG of same day Referred By: Марина Burns Electronically Signed By:RYAN ZHU
[2024-02-12] MEDS: DOPamine HCL/D5W 400 MG/250 ML PLAST..BAG 53.48 MG IVCONT ×4 (00:18→14:20)
[2024-02-12] MEDS: EPINEPHrine 5 MG in Dextrose 5 % 250 ML 436.36 MG IVCONT ×25 (00:36→16:50)
[2024-02-12 01:11] LABS: Anion Gap 23 (12-20); Blood Urea Nitrogen 13 mg/dL (9-16); Calcium 8.6 mg/dL (8.4-10.2); Carbon Dioxide 12 mmol/L (22-29); Chloride 102 mmol/L (96-108); Estimated Glomerular Filt Rate 38; Glucose Random 458 mg/dL (60-115); Phosphorus 6.6 mg/dL (2.7-4.5); Potassium 3.3 mmol/L (3.3-5.1); Sodium 134 mmol/L (135-145)
--- NOTE | 2024-02-12 01:12 | P.PNCC_ITS ---
Critical Care Event Note Summary Date of Service: 02/11/24 <Марина Burns NP - Last Filed: 02/12/24 07:48> Code activated: Yes <Марина Burns NP - Last Filed: 02/12/24 07:48> Narrative: At approximately 1830 on 02/11/2024, the pt began to have intermittent seizures. Midazolam was adjusted accordingly. At 1850 pt went into pulseless Vtach. CPR was started and pricila tomlinson called overhead. On my arrival to the unit, CPR was in progress, ED provider was at bedside. After 6 minutes of CPR, a pulse was palpated. Rhythm suspicious for Torsades. He received a total of 4 g magnesium. Pulse was lost several times and the patient received a total of 2 shocks. He continued to have seizures and was given a total of 4 mg Ativan IVP and the Midazolam drip was increased to 10 mg/hr. He was given Keppra and Dilantin. A magnesium drip was initiated. He was started on a lidocaine drip and an epinephrine drip in addition to the norepinephrine gtt that had been started earlier in the day. ROSC obtained at 1915. Code blue complete at 1931. Patient's care was discussed in detail with Dr. Cerda? She is aware of all the above as well as the plan of care for this patient. This case had a high probability of a clinically significant, sudden, or life threatening deterioration of this patient's condition which required my full and direct attention, intervention and personal management. <Марина Burns NP - Last Filed: 02/12/24 07:48> At approximately 1830 on 02/11/2024, the pt began to have intermittent tonic- clonic movements. Midazolam was adjusted accordingly. At 1850 pt went into pulseless Vtach. CPR was started and pricila tomlinson called overhead. On my arrival to the unit, CPR was in progress, ED provider was at bedside. After 6 minutes of CPR, a pulse was palpated. Rhythm suspicious for Torsades. He received a total of 4 g magnesium. Pulse was lost several times and the patient received a total of 2 shocks. He continued to have seizures and was given a total of 4 mg Ativan IVP and the Midazolam drip was increased to 10 mg/hr. He was given Keppra and Dilantin. A magnesium drip was initiated. He was started on a lidocaine drip and an epinephrine drip in addition to the norepinephrine gtt that had been started earlier in the day. ROSC obtained at 1915. Code blue complete at 1931. Patient's care was discussed in detail with Dr. Davis.? She is aware of all the above as well as the plan of care for this patient. This case had a high probability of a clinically significant, sudden, or life threatening deterioration of this patient's condition which required my full and direct attention, intervention and personal management. <Teri Davis MD - Last Filed: 02/12/24 07:51> Critical Care Time (minutes): 120 <Марина Burns NP - Last Filed: 02/12/24 07:48>
[2024-02-12] MEDS: Norepinephrine Bitartrate/D5W 8 MG/250 ML PLAST..BAG 133.69 MG IV ×9 (01:18→15:23)
[2024-02-12 01:28] LABS: ABG HCO3 13 mmol/L (22-26); ABG pCO2 46 mmHg (32-45); ABG pH 7.04 (7.35-7.45); ABG pO2 49 mmHg (83-108)
--- NOTE | 2024-02-12 01:38 | W.PM.CCHP ---
Procedures Date of Service Date of Service: 02/12/24
[2024-02-12] MEDS: Sodium Bicarbonate 8.4% 50 MEQ/50 ML VIAL IVPUSH ×6 (01:42→12:12)
[2024-02-12] MEDS: Insulin Lispro 100 UNIT/ML 3 ML VIAL 10 UNIT SUBCUT (01:59)
--- NOTE | 2024-02-12 02:31 | PM.CCN ---
Critical Care Event Note Summary Date of Service: 02/12/24 <Марина Burns NP - Last Filed: 02/12/24 05:52> Code activated: Yes <Марина Burns NP - Last Filed: 02/12/24 05:52> Narrative: Pt with maximum doses of norepinephrine, epinephrine, dopamine, vasopressin drips. Also receiving magnesium 1g/hr, sodium bicarbonate drip.? At 0053, Pt in pulseless VTach. CPR was immediately initiated with the Fede. At 0109, after 7 rounds of CPR, a pulse was palpated and ROSC was achieved. The patient received 4 amps epi, 2 amps bicarb, 1 g Calcium chloride.? ? Prior to this arrest, the patient was given antibiotics empirically. Labwork post resuscitation a few hours earlier revealed an elevated lactic acid. Blood cultures pending. Troponin 8.8. Pt was too unstable for imaging. He remained unresponsive. Pupils fixed and dilated. Hypotensive, heart rhythm inconsistent; in and out of VTach with a pulse. Attempted to transcutaneous pacing, but was unable to properly sense rhythm. All sedation had been turned off before midnight.? Patient's care was discussed in detail with Dr. Davis.? She is aware of all the above as well as the plan of care for this patient. This case had a high probability of a clinically significant, sudden, or life threatening deterioration of this patient's condition which required my full and direct attention, intervention and personal management. <Марина Burns NP - Last Filed: 02/12/24 05:52> Critical Care Time (minutes): 60 <Teri Davis MD - Last Filed: 02/12/24 07:50>
[2024-02-12 02:38] LABS: Reflex Lactate? 2 Y
--- NOTE | 2024-02-12 02:54 | ECG_ITS ---
Test Reason : post cardiac arrest prolonged qt Blood Pressure : / mmHG Vent. Rate : 084 BPM Atrial Rate : 087 BPM P-R Int : 182 ms QRS Dur : 130 ms QT Int : 312 ms P-R-T Axes : 012 050 053 degrees QTc Int : 368 ms Normal sinus rhythm Non-specific intra-ventricular conduction block Cannot rule out Anterior infarct , age undetermined Abnormal ECG No previous ECGs available Referred By: Марина Burns Electronically Signed By:RYAN ZHU
[2024-02-12] MEDS: Potassium Chloride/H20 40 MEQ/100 ML PIGGYBACK 100 MEQ IV ×3 (03:03→08:05)
--- NOTE | 2024-02-12 03:14 | W.ED.CONS.HO ---
Consult Details Consult Details: Approximately at 18:30, a code blue was called in intensive care unit. Per patient's nurse, seems that patient was going in and out of arrhythmias for a few seconds, from the description seems that patient was in [place]. When I arrived to the patient's room, patient was pulseless. CPR was started. 4 mg of magnesium and Epinephrine pushes were given. After a few rounds of CPR and 2 shocks, patient regained ROSC. During the code, patient was also given a dose of IV push lidocaine. Patient's previous EKGs showed a prolonged QT/QTC. Then patient was started on a lidocaine drip. It was also noted that patient was having seizures at the same time. Patient was already on a Versed drip. 4 mg of IV Ativan were given. Despite 4 mg of Ativan, patient continued seizing, patient in status epilepticus. Patient was given IV Dilantin and IV Keppra. Eventually after both medications were infused, the seizures stopped. However, patient kept getting several runs of ventricular tachycardia with pulse. Patient had several runs of both sustained a nonsustained ventricular tachycardia. When patient was in sustained ventricular tachycardia and patient's blood pressure dropped to the low 50s systolic, patient was shocked. Patient received 2-3 shocks. Patient on lidocaine drip. ICU physician administrative office assistant discussed the patient with ICU attending Dr. Davis, patient was started on epinephrine drip and norepinephrine drip. Overall, by the time that we concluded the code blue which overall lasted approximately 1 hour, from 630-730 p.m.,, patient had 12 different drips running simultaneously, patient still has a pulse, still having intermittent runs of ventricular tachycardia with pulse. Patient's pupils are dilated and nonreactive to light. We attempted calling the patient's contact who is listed in the chart, but the line is disconnected Per Dr. Short's request, I attempted placing an arterial line, both in the right radial artery and right femoral artery. However, patient is still hypotensive that palpating the pulse was very difficult. Other than monitoring, at this time inserting an arterial line would not change patient's outcome. Prognosis is poor
[2024-02-12 03:22] LABS: VBG Base Excess -15.3 mmol/L; VBG HCO3 13 mmol/L (22-26); VBG pCO2 40 mmHg; VBG pH 7.11 (7.32-7.43); VBG pO2 57 mmHg
[2024-02-12 03:23] LABS: Venous Blood Gas Refer to POC result
[2024-02-12] MEDS: Vasopressin 20 UNIT/100 ML INFUS..BTL 12 UNIT IVCONT ×2 (03:34→11:11)
[2024-02-12] MEDS: Sodium Bicarbonate 8.4% 50 MEQ/50 ML VIAL IV ×2 (03:50→03:57)
[2024-02-12] MEDS: Piperacillin Sodium/Tazobactam 3.375 GM in 0.9 % Sodium Chloride 50 ML IV ×3 (04:51→15:53)
[2024-02-12 05:47] LABS: Glucose, Whole Blood 573 mg/dL (60-115)
[2024-02-12] MEDS: Sodium Bicarbonate 8.4% 150 MEQ in Dextrose 5 % 850 ML 100 MEQ IV (05:53)
[2024-02-12] MEDS: Insulin Lispro 100 UNIT/ML 3 ML VIAL SUBCUT ×2 (05:58→05:59)
[2024-02-12 06:12] LABS: VBG Base Excess -14.3 mmol/L; VBG HCO3 13 mmol/L (22-26); VBG pCO2 37 mmHg; VBG pH 7.16 (7.32-7.43); VBG pO2 55 mmHg
[2024-02-12 06:19] LABS: Hematocrit 41.8 % (42.0-52.0); Hemoglobin 13.4 g/dl (14.0-18.0); Mean Corpuscular HGB Conc 32.1 g/dl (31.0-36.0); Mean Corpuscular Hemoglobin 30.9 pg (27.0-33.0); Mean Corpuscular Volume 96.5 fL (80.0-98.0); Red Blood Count 4.33 X10*6/uL (4.60-5.80); Red Cell Distribution Width 13.3 % (11.0-16.0)
[2024-02-12 06:20] LABS: Basophils Absolute Auto 0.1 X10*3/uL (0.0-0.2); Basophils Percent Auto 0.3 % (0-2); Eosinophils Absolute Auto 0.1 X10*3/uL (0.0-0.4); Eosinophils Percent Auto 0.1 % (0-4); Imm Gran Abs Auto 1.17 X10*3/uL (0.00-0.03); Imm Gran Pct Auto 3.1 % (0.0-0.4); Lymphocytes Absolute Auto 2.4 X10*3/uL (1.2-4.9); Lymphocytes Percent Auto 6.2 % (20-40); MANUAL DIFF FLAG SCAN; Mean Platelet Volume 11.2 fL (9.4-12.4); Monocytes Absolute Auto 0.6 X10*3/uL (0.1-1.2); Monocytes Percent Auto 1.7 % (2-11); NRBC Pct Auto 0.1 /100WBC (0.0-0.2); Neutrophils Absolute Auto 33.7 x10*3/uL (2.0-8.3); Neutrophils Percent Auto 88.6 % (45-73); Platelet Count 177 X10*3/uL (160-400); SCAN SMEAR FLAG 1
[2024-02-12 06:40] LABS: Anion Gap 26 (12-20); Blood Urea Nitrogen 13 mg/dL (9-16); Carbon Dioxide 13 mmol/L (22-29); Chloride 92 mmol/L (96-108); Estimated Glomerular Filt Rate 33; Glucose Random 670 mg/dL (60-115); Magnesium 4.9 mg/dL (1.6-2.6); Phosphorus 2.5 mg/dL (2.7-4.5); Potassium 2.8 mmol/L (3.3-5.1); Sodium 128 mmol/L (135-145)
[2024-02-12 06:48] LABS: Troponin-I High Sensitivity 440.4 ng/L (<3.5-35.0)
[2024-02-12 06:49] LABS: Glucose, Whole Blood 532 mg/dL (60-115)
[2024-02-12] MEDS: Insulin Regular, Human 100 UNIT/ML 3 ML VIAL 10 UNIT IVPUSH ×2 (06:52→11:05)
[2024-02-12] MEDS: Insulin Regular/NS 100 UNIT/100 ML PLAST..BAG 6 UNIT IVCONT (06:54)
--- NOTE | 2024-02-12 07:56 | P.PNCC_ITS ---
Subjective Subjective Date of Service: 02/12/24 Interval History: of note, patient became exceedingly critically ill and unstable throughout 02/10 PM and 02/11 AM; at around 02/10 18:30, patient HR 100s, normotensive, and satting well on minimal ventilator support; patient developed intermittent tonic-clonic movements; at the time, patient on low-dose propofol and midazolam gtts; given c/f seizure activity, propofol and midazolam gtt increased; patient remained hemodynamically stable; at around 02/10 19:00, patient went into cardiac arrest, pulseless ventricular tachycardia; given hospital course, there was c/f torsades de pointes; patient given magnesium bolus and gtt and started on anti-arrythmic lidocaine; patient achieved ROSC, though remained exceedingly critically ill and unstable throughout 02/10 PM and AM; patient developed vicki multi-system organ failure; vasopressor requirement included maximum dosing of epinephrine, dopamine, norepinephrine and vasopressin gtts in attempts to augment both heart rate and blood pressure; transcutaneous pacing was attempted, but failed, likely due to metabolic acidosis; ventilator requirement increased to maximum FiO2 to sustain saturation low 90s; patient developed vicki metabolic acidosis, for which bicarbonate bolus and gtts given; patient became hyperglycemic, for which insulin bolus and gtts given; patient anuric despite massive volume resuscitation; electrolytes were aggressively repleted; all sedation was discontinued, without appreciable spontaneous movements, including respirations, and pupils fixed and dilated, no appreciable cough, gag; at around 02/11 04:00, patient went into second cardiac arrest, pulseless ventricular tachycardia, with eventual ROSC, though still necessitating all above-mentioned life support; of note, significant attempts were made to contact loved ones; calls were made to [facility], who were able to provide a phone number; however, the phone number line appears disconnected Critical Care Time (minutes): 120 Physical Exam 2 Vital Signs: Vital Signs: Last Vital Signs Temp 96.3 F L 02/12/24 07:00 Pulse 84 02/12/24 07:46 Resp 26 H 02/12/24 07:00 BP 91/40 L 02/12/24 07:46 Pulse Ox 93 02/12/24 07:00 O2 Del Method Mechanical Ventil ation 02/12/24 07:00 FiO2 100 02/12/24 07:34 BMI result Body Mass Index 23.2 Const: Other: intubated; pupils fixed, dilated at 6 bilaterally; no appreciable cough, gag; no appreciable spontaneous movements HEENT: Head: Yes normocephalic, Yes atraumatic and Yes Acrocyanosis present Eyes: Other: appreciable chemosis bilaterally Neck: Other: R IJ central line in place, clean, dry, intact Neck: Yes trachea midline and Yes supple Resp: Other: no appreciable rales, rhonchi, wheezing to anterior lung varner Cardio: Rate: regular rate Rhythm: regular rhythm GI: Other: distended, though soft, compressible; unable to sai any tenderness to palpation : Male General Exam: Yes normal external exam Skin: Other: appreciable diffuse mottling throughout Neuro: Other: as described above Extrem: Other: capillary refill greater than 2 seconds Psych: Other: unable to assess Objective Data Labs 02/12/24 05:55 02/12/24 05:55 Labs: Laboratory Results - last 24 hr 02/11/24 02/11/24 02/11/24 09:01 09:01 09:01 WBC 8.6 RBC 3.74 L Hgb 11.6 L Hct 33.8 L MCV 90.4 MCH 31.0 MCHC 34.3 RDW 13.3 Plt Count 244 MPV 10.4 Immature Gran % (Auto) 0.5 H Neut % (Auto) 76.1 H Lymph % (Auto) 13.9 L [place] % (Auto) 6.9 Eos % (Auto) 2.2 Baso % (Auto) 0.4 Lymph # (Auto) 1.2 [place] # (Auto) 0.6 Eos # (Auto) 0.2 Baso # (Auto) 0.0 Abs Immat Gran (auto) 0.04 H Absolute Neuts (auto) 6.5 Absolute Nucleated RBC 0.000 Nucleated RBC % (auto) 0.0 O2 Saturation ABG pH at Pt Temp ABG pCO2 at Pt Temp ABG pO2 at Pt Temp ABG HCO3 ABG Base Excess (Actual) VBG pH VBG pCO2 VBG pO2 VBG HCO3 VBG O2 Saturation VBG Base Excess Sodium 141 141 Potassium 3.6 3.5 Chloride 112 H Carbon Dioxide Anion Gap BUN Creatinine Estim Creat Clear Calc Estimated GFR POC Glucose Random Glucose Lactic Acid Lactic Acid F/U @ 2Hr Lactic Acid F/U @ 4Hr Calcium Phosphorus Magnesium Total Bilirubin AST ALT Alkaline Phosphatase Total Creatine Kinase Troponin I High Sens Total Protein Albumin TSH Urine Opiates Screen Ur Buprenorphine Scrn Ur Oxycodone Screen Urine Methadone Screen Urine Fentanyl Screen Ur Barbiturates Screen Ur Phencyclidine Scrn Ur Amphetamines Screen U Benzodiazepines Scrn Urine Cocaine Screen U Marijuana (THC) Screen 02/11/24 02/11/24 02/11/24 09:01 09:01 09:01 WBC RBC Hgb Hct MCV MCH MCHC RDW Plt Count MPV Immature Gran % (Auto) Neut % (Auto) Lymph % (Auto) [place] % (Auto) Eos % (Auto) Baso % (Auto) Lymph # (Auto) [place] # (Auto) Eos # (Auto) Baso # (Auto) Abs Immat Gran (auto) Absolute Neuts (auto) Absolute Nucleated RBC Nucleated RBC % (auto) O2 Saturation ABG pH at Pt Temp ABG pCO2 at Pt Temp ABG pO2 at Pt Temp ABG HCO3 ABG Base Excess (Actual) VBG pH VBG pCO2 VBG pO2 VBG HCO3 VBG O2 Saturation VBG Base Excess Sodium Potassium Chloride 111 H Carbon Dioxide 22 23 Anion Gap 11 L 11 L BUN 12 Creatinine Estim Creat Clear Calc Estimated GFR POC Glucose Random Glucose Lactic Acid Lactic Acid F/U @ 2Hr Lactic Acid F/U @ 4Hr Calcium Phosphorus Magnesium Total Bilirubin AST ALT Alkaline Phosphatase Total Creatine Kinase Troponin I High Sens Total Protein Albumin TSH Urine Opiates Screen Ur Buprenorphine Scrn Ur Oxycodone Screen Urine Methadone Screen Urine Fentanyl Screen Ur Barbiturates Screen Ur Phencyclidine Scrn Ur Amphetamines Screen U Benzodiazepines Scrn Urine Cocaine Screen U Marijuana (THC) Screen 02/11/24 02/11/24 02/11/24 09:01 09:01 09:01 WBC RBC Hgb Hct MCV MCH MCHC RDW Plt Count MPV Immature Gran % (Auto) Neut % (Auto) Lymph % (Auto) [place] % (Auto) Eos % (Auto) Baso % (Auto) Lymph # (Auto) [place] # (Auto) Eos # (Auto) Baso # (Auto) Abs Immat Gran (auto) Absolute Neuts (auto) Absolute Nucleated RBC Nucleated RBC % (auto) O2 Saturation ABG pH at Pt Temp ABG pCO2 at Pt Temp ABG pO2 at Pt Temp ABG HCO3 ABG Base Excess (Actual) VBG pH VBG pCO2 VBG pO2 VBG HCO3 VBG O2 Saturation VBG Base Excess Sodium Potassium Chloride Carbon Dioxide Anion Gap BUN 12 Creatinine 0.67 0.67 Estim Creat Clear Calc 142.1 142.1 Estimated GFR > 60 POC Glucose Random Glucose Lactic Acid Lactic Acid F/U @ 2Hr Lactic Acid F/U @ 4Hr Calcium Phosphorus Magnesium Total Bilirubin AST ALT Alkaline Phosphatase Total Creatine Kinase Troponin I High Sens Total Protein Albumin TSH Urine Opiates Screen Ur Buprenorphine Scrn Ur Oxycodone Screen Urine Methadone Screen Urine Fentanyl Screen Ur Barbiturates Screen Ur Phencyclidine Scrn Ur Amphetamines Screen U Benzodiazepines Scrn Urine Cocaine Screen U Marijuana (THC) Screen 02/11/24 02/11/24 02/11/24 09:01 09:01 09:01 WBC RBC Hgb Hct MCV MCH MCHC RDW Plt Count MPV Immature Gran % (Auto) Neut % (Auto) Lymph % (Auto) [place] % (Auto) Eos % (Auto) Baso % (Auto) Lymph # (Auto) [place] # (Auto) Eos # (Auto) Baso # (Auto) Abs Immat Gran (auto) Absolute Neuts (auto) Absolute Nucleated RBC Nucleated RBC % (auto) O2 Saturation ABG pH at Pt Temp ABG pCO2 at Pt Temp ABG pO2 at Pt Temp ABG HCO3 ABG Base Excess (Actual) VBG pH VBG pCO2 VBG pO2 VBG HCO3 VBG O2 Saturation VBG Base Excess Sodium Potassium Chloride Carbon Dioxide Anion Gap BUN Creatinine Estim Creat Clear Calc Estimated GFR > 60 POC Glucose Random Glucose 81 80 Lactic Acid Lactic Acid F/U @ 2Hr Lactic Acid F/U @ 4Hr Calcium 8.0 L D 8.1 L Phosphorus 1.5 L Magnesium 1.9 Total Bilirubin AST ALT Alkaline Phosphatase Total Creatine Kinase Troponin I High Sens Total Protein Albumin TSH Urine Opiates Screen Ur Buprenorphine Scrn Ur Oxycodone Screen Urine Methadone Screen Urine Fentanyl Screen Ur Barbiturates Screen Ur Phencyclidine Scrn Ur Amphetamines Screen U Benzodiazepines Scrn Urine Cocaine Screen U Marijuana (THC) Screen 02/11/24 02/11/24 02/11/24 09:01 09:03 09:13 WBC RBC Hgb Hct MCV MCH MCHC RDW Plt Count MPV Immature Gran % (Auto) Neut % (Auto) Lymph % (Auto) [place] % (Auto) Eos % (Auto) Baso % (Auto) Lymph # (Auto) [place] # (Auto) Eos # (Auto) Baso # (Auto) Abs Immat Gran (auto) Absolute Neuts (auto) Absolute Nucleated RBC Nucleated RBC % (auto) O2 Saturation ABG pH at Pt Temp ABG pCO2 at Pt Temp ABG pO2 at Pt Temp ABG HCO3 ABG Base Excess (Actual) VBG pH 7.35 VBG pCO2 41 VBG pO2 136 VBG HCO3 23 VBG O2 Saturation 100.0 VBG Base Excess -1.7 Sodium Potassium Chloride Carbon Dioxide Anion Gap BUN Creatinine Estim Creat Clear Calc Estimated GFR POC Glucose Random Glucose Lactic Acid Lactic Acid F/U @ 2Hr Lactic Acid F/U @ 4Hr Calcium Phosphorus Magnesium 2.0 Total Bilirubin 0.5 AST 18 ALT 15 Alkaline Phosphatase 55 Total Creatine Kinase 114 Troponin I High Sens 4.9 Total Protein 6.0 L Albumin 3.0 L TSH Urine Opiates Screen POSITIVE H Ur Buprenorphine Scrn Not Detected Ur Oxycodone Screen Not Detected Urine Methadone Screen Positive H Urine Fentanyl Screen POSITIVE H Ur Barbiturates Screen Not Detected Ur Phencyclidine Scrn Not Detected Ur Amphetamines Screen POSITIVE H U Benzodiazepines Scrn POSITIVE H Urine Cocaine Screen POSITIVE H U Marijuana (THC) Screen POSITIVE H 02/11/24 02/11/24 02/11/24 15:08 19:30 19:32 WBC RBC Hgb Hct MCV MCH MCHC RDW Plt Count MPV Immature Gran % (Auto) Neut % (Auto) Lymph % (Auto) [place] % (Auto) Eos % (Auto) Baso % (Auto) Lymph # (Auto) [place] # (Auto) Eos # (Auto) Baso # (Auto) Abs Immat Gran (auto) Absolute Neuts (auto) Absolute Nucleated RBC Nucleated RBC % (auto) O2 Saturation ABG pH at Pt Temp ABG pCO2 at Pt Temp ABG pO2 at Pt Temp ABG HCO3 ABG Base Excess (Actual) VBG pH 7.28 L VBG pCO2 40 VBG pO2 46 VBG HCO3 19 L VBG O2 Saturation 72.0 VBG Base Excess -7.0 Sodium 138 Potassium 3.7 Chloride 109 H Carbon Dioxide 19 L Anion Gap 14 BUN 13 Creatinine 1.05 Estim Creat Clear Calc 90.7 Estimated GFR > 60 POC Glucose Random Glucose 260 H Lactic Acid Lactic Acid F/U @ 2Hr Lactic Acid F/U @ 4Hr Calcium 8.1 L Phosphorus 3.8 Magnesium 4.0 H* Total Bilirubin AST ALT Alkaline Phosphatase Total Creatine Kinase 156 Troponin I High Sens 8.8 D Total Protein Albumin TSH 0.47 Urine Opiates Screen Ur Buprenorphine Scrn Ur Oxycodone Screen Urine Methadone Screen Urine Fentanyl Screen Ur Barbiturates Screen Ur Phencyclidine Scrn Ur Amphetamines Screen U Benzodiazepines Scrn Urine Cocaine Screen U Marijuana (THC) Screen 02/11/24 02/11/24 02/12/24 21:00 22:26 00:25 WBC RBC Hgb Hct MCV MCH MCHC RDW Plt Count MPV Immature Gran % (Auto) Neut % (Auto) Lymph % (Auto) [place] % (Auto) Eos % (Auto) Baso % (Auto) Lymph # (Auto) [place] # (Auto) Eos # (Auto) Baso # (Auto) Abs Immat Gran (auto) Absolute Neuts (auto) Absolute Nucleated RBC Nucleated RBC % (auto) O2 Saturation 95.0 ABG pH at Pt Temp 7.06 L* ABG pCO2 at Pt Temp 42 ABG pO2 at Pt Temp 99 ABG HCO3 12 L ABG Base Excess (Actual) -17.3 VBG pH VBG pCO2 VBG pO2 VBG HCO3 VBG O2 Saturation VBG Base Excess Sodium 134 L Potassium 3.3 Chloride 102 Carbon Dioxide 12 L Anion Gap 23 H BUN 13 Creatinine 1.94 H Estim Creat Clear Calc 49.0 Estimated GFR 38 POC Glucose Random Glucose 458 H* Lactic Acid 8.7 H* Lactic Acid F/U @ 2Hr 13.0 H* Lactic Acid F/U @ 4Hr Calcium 8.6 D Phosphorus 6.6 H Magnesium 5.0 H* Total Bilirubin AST ALT Alkaline Phosphatase Total Creatine Kinase Troponin I High Sens Total Protein Albumin TSH Urine Opiates Screen Ur Buprenorphine Scrn Ur Oxycodone Screen Urine Methadone Screen Urine Fentanyl Screen Ur Barbiturates Screen Ur Phencyclidine Scrn Ur Amphetamines Screen U Benzodiazepines Scrn Urine Cocaine Screen U Marijuana (THC) Screen 02/12/24 02/12/24 02/12/24 01:19 03:09 03:12 WBC RBC Hgb Hct MCV MCH MCHC RDW Plt Count MPV Immature Gran % (Auto) Neut % (Auto) Lymph % (Auto) [place] % (Auto) Eos % (Auto) Baso % (Auto) Lymph # (Auto) [place] # (Auto) Eos # (Auto) Baso # (Auto) Abs Immat Gran (auto) Absolute Neuts (auto) Absolute Nucleated RBC Nucleated RBC % (auto) O2 Saturation 68.0 ABG pH at Pt Temp 7.04 L* ABG pCO2 at Pt Temp 46 H ABG pO2 at Pt Temp 49 L* ABG HCO3 13 L ABG Base Excess (Actual) -17.0 VBG pH 7.11 L* VBG pCO2 40 VBG pO2 57 VBG HCO3 13 L VBG O2 Saturation 82.0 VBG Base Excess -15.3 Sodium Potassium Chloride Carbon Dioxide Anion Gap BUN Creatinine Estim Creat Clear Calc Estimated GFR POC Glucose Random Glucose Lactic Acid Lactic Acid F/U @ 2Hr Lactic Acid F/U @ 4Hr 15.0 H* Calcium Phosphorus Magnesium Total Bilirubin AST ALT Alkaline Phosphatase Total Creatine Kinase Troponin I High Sens Total Protein Albumin TSH Urine Opiates Screen Ur Buprenorphine Scrn Ur Oxycodone Screen Urine Methadone Screen Urine Fentanyl Screen Ur Barbiturates Screen Ur Phencyclidine Scrn Ur Amphetamines Screen U Benzodiazepines Scrn Urine Cocaine Screen U Marijuana (THC) Screen 02/12/24 02/12/24 02/12/24 05:43 05:55 06:04 WBC 38.0 H* RBC 4.33 L Hgb 13.4 L Hct 41.8 L D MCV 96.5 D MCH 30.9 MCHC 32.1 RDW 13.3 Plt Count 177 D MPV 11.2 Immature Gran % (Auto) Neut % (Auto) Lymph % (Auto) [place] % (Auto) Eos % (Auto) Baso % (Auto) Lymph # (Auto) [place] # (Auto) Eos # (Auto) Baso # (Auto) Abs Immat Gran (auto) Absolute Neuts (auto) Absolute Nucleated RBC Nucleated RBC % (auto) O2 Saturation ABG pH at Pt Temp ABG pCO2 at Pt Temp ABG pO2 at Pt Temp ABG HCO3 ABG Base Excess (Actual) VBG pH 7.16 L* VBG pCO2 37 VBG pO2 55 VBG HCO3 13 L VBG O2 Saturation 82.0 VBG Base Excess -14.3 Sodium 128 L Potassium 2.8 L* Chloride 92 L Carbon Dioxide 13 L Anion Gap 26 H BUN 13 Creatinine 2.21 H Estim Creat Clear Calc 43.0 Estimated GFR 33 POC Glucose 573 H* Random Glucose 670 H* Lactic Acid Lactic Acid F/U @ 2Hr Lactic Acid F/U @ 4Hr Calcium 8.0 L D Phosphorus 2.5 L Magnesium 4.9 H* Total Bilirubin AST ALT Alkaline Phosphatase Total Creatine Kinase Troponin I High Sens 440.4 H* D Total Protein Albumin TSH Urine Opiates Screen Ur Buprenorphine Scrn Ur Oxycodone Screen Urine Methadone Screen Urine Fentanyl Screen Ur Barbiturates Screen Ur Phencyclidine Scrn Ur Amphetamines Screen U Benzodiazepines Scrn Urine Cocaine Screen U Marijuana (THC) Screen 02/12/24 06:45 WBC RBC Hgb Hct MCV MCH MCHC RDW Plt Count MPV Immature Gran % (Auto) Neut % (Auto) Lymph % (Auto) [place] % (Auto) Eos % (Auto) Baso % (Auto) Lymph # (Auto) [place] # (Auto) Eos # (Auto) Baso # (Auto) Abs Immat Gran (auto) Absolute Neuts (auto) Absolute Nucleated RBC Nucleated RBC % (auto) O2 Saturation ABG pH at Pt Temp ABG pCO2 at Pt Temp ABG pO2 at Pt Temp ABG HCO3 ABG Base Excess (Actual) VBG pH VBG pCO2 VBG pO2 VBG HCO3 VBG O2 Saturation VBG Base Excess Sodium Potassium Chloride Carbon Dioxide Anion Gap BUN Creatinine Estim Creat Clear Calc Estimated GFR POC Glucose 532 H* Random Glucose Lactic Acid Lactic Acid F/U @ 2Hr Lactic Acid F/U @ 4Hr Calcium Phosphorus Magnesium Total Bilirubin AST ALT Alkaline Phosphatase Total Creatine Kinase Troponin I High Sens Total Protein Albumin TSH Urine Opiates Screen Ur Buprenorphine Scrn Ur Oxycodone Screen Urine Methadone Screen Urine Fentanyl Screen Ur Barbiturates Screen Ur Phencyclidine Scrn Ur Amphetamines Screen U Benzodiazepines Scrn Urine Cocaine Screen U Marijuana (THC) Screen Progress Note: A&P Assessment and plan (1) Methadone use: Status: Acute (2) Opiate withdrawal: Status: Acute (3) Cocaine abuse: Status: Acute (4) Long QT interval: Status: Acute (5) Torsades de pointes: Status: Acute (6) Cardiogenic shock: Status: Acute (7) Renal failure, acute: Status: Acute (8) Acute hypoxic respiratory failure: Status: Acute (9) Hyperglycemia: Status: Acute Plan Patient is a 43 Y M with polysubstance misuse, prior hepatitis C, and psychiatric comorbidities, presenting initially to emergency department on 02/09 w/ auditory and visual hallucination in the setting of reported cocaine use and self-reported methadone withdrawal; in emergency department, patient found to have QTc prolongation; patient developed worsening agitation, necessitating intubation in emergency department; ICU course complicated by multiple cardiac arrests, likely d/t QTc prolongation and torsades de pointes, further c/b shock, multi-system organ failure N: intubated, not sedated; clinical exam is very concerning for possible anoxic brain injury; to maintain off sedation CV: shock, initially likely cardiogenic, though now likely cardiogenic and distributive; on maximum of multiple vasopressors including epinephrine, dopamine, norepinephrine, vasopressin; adding phenylephrine; QTc prolongation and c/f torsades de pointes; magnesium bolus and gtt, lidocaine; attempted transcutaneous pacing w/o success; appreciate cardiology recommendations R: acute hypoxic respiratory failure, likely d/t pulmonary edema; wean ventilator if tolerated GI: NPO; c/f mesenteric ischemia given maximum vasopressors : acute renal failure, aneuric; too hemodynamically unstable for hemodialysis; metabolic acidosis d/t lactic acidosis; bicarbonate bolus and gtt; aggressive electrolyte repletion, especially magnesium 3-5 H: profound leukocytosis; chemical DVT prophylaxis ID: empiric vancomycin, zosyn; to follow-up blood cultures E: hyperglycemia; insulin gtt P: no acute issues S: to continue to attempt contact w/ loved ones Quality Stroke Does the patient have a stroke diagnosis?: No VTE Prior VTE?: No VTE Risk Level:: Medical - moderate - high VTE Device Contraindication: N/A - Device Ordered VTE Drug Contraindication: N/A - Med Ordered
[2024-02-12 07:57] LABS: Glucose, Whole Blood > 600 mg/dL (60-115)
[2024-02-12 08:00] LABS: Glucose, Whole Blood 569 mg/dL (60-115)
[2024-02-12] MEDS: Phenylephrine HCL 20 MG in 0.9 % Sodium Chloride 250 ML 26.95 MG IVCONT (08:35)
[2024-02-12 08:44] LABS: SLIDE REVIEW VERIFIED
--- NOTE | 2024-02-12 08:49 | ECG_ITS ---
Test Reason : QTc Monitoring Blood Pressure : / mmHG Vent. Rate : 080 BPM Atrial Rate : 000 BPM P-R Int : 000 ms QRS Dur : 130 ms QT Int : 438 ms P-R-T Axes : 000 -80 090 degrees QTc Int : 505 ms Idioventricular rhythm Left axis deviation Abnormal ECG No significant changes when compared with the previous EKG of same day Referred By: Марина Burns Electronically Signed By:RYAN ZHU
[2024-02-12 09:07] LABS: Glucose, Whole Blood > 600 mg/dL (60-115)
[2024-02-12 09:07] LABS: Glucose, Whole Blood > 600 mg/dL (60-115)
--- NOTE | 2024-02-12 09:33 | ECG_ITS ---
Test Reason : QTc Monitoring Blood Pressure : / mmHG Vent. Rate : 083 BPM Atrial Rate : 083 BPM P-R Int : 192 ms QRS Dur : 130 ms QT Int : 326 ms P-R-T Axes : 018 008 025 degrees QTc Int : 383 ms Normal sinus rhythm Non-specific intra-ventricular conduction block Nonspecific T wave abnormality Abnormal ECG When compared with ECG of 12-FEB-2024 02:47, No significant change was found Referred By: Teri Davis Electronically Signed By:RYAN ZHU
[2024-02-12] MEDS: Enoxaparin Sodium 40 MG/0.4 ML SYRINGE SUBCUT (09:37)
--- NOTE | 2024-02-12 09:38 | MHC.CM.PN ---
This inspector automatic typewriter was able to locate pt's father Selvin Hendrickson @ [phone] he is agreeable to make decisions as next of kin for pt. Information provided to Dr. Davis. Also note pt's father reports patient does have a son, father will try and reach him. Selvin also reports pt was close with his step-mother.
[2024-02-12] MEDS: Calcium Chloride 1 GM/10 ML SYRINGE IVPUSH ×2 (09:46→13:13)
[2024-02-12] MEDS: Chlorhexidine Gluc Oral Rinse 15 ML MOUTHWASH BUCCAL (09:55)
[2024-02-12 10:04] LABS: Glucose, Whole Blood > 600 mg/dL (60-115)
[2024-02-12 10:05] LABS: Glucose, Whole Blood > 600 mg/dL (60-115)
[2024-02-12 10:42] LABS: Venous Blood Gas Refer to POC result
[2024-02-12 10:51] LABS: ABG Refer to POC result
[2024-02-12 10:51] LABS: ABG Refer to POC result
--- NOTE | 2024-02-12 10:52 | PM.PNCARD ---
Subjective Subjective Date of Service: 02/12/24 Interval history: Seen in follow-up. Patient had code blue overnight and got resuscitated but appears critically ill. Review of Systems Review of Systems Unable to obtain Physical Exam Vital Signs: Last Vital Signs Temp 95.9 F L 02/12/24 10:00 Pulse 82 02/12/24 10:23 Resp 26 H 02/12/24 10:00 BP 97/36 L 02/12/24 10:23 Pulse Ox 94 02/12/24 10:00 O2 Del Method Mechanical Ventilation 02/12/24 10:00 FiO2 100 02/12/24 10:00 BMI result Body Mass Index 23.2 Const Other: Intubated General: ill appearing and patient obtunded Orientation/consciousness: patient obtunded HEENT Other: Unremarkable Head: Yes normal to inspection Eyes Other: Pupils are dilated and not reactive to light. Neck Neck: Yes normal visual inspection Chest Chest palpation & inspection: normal inspection of the chest Resp Auscultation: diminished lung sounds Cardio Palpation: normal PMI Heart sounds: S1 normal heart sound present, S2 normal heart sound present, no gallops, no murmurs and no rubs GI Palpation (GI): Soft to palpation Back/Spine/Pelvis Other: unremarkable Skin General skin exam: no rashes or lesions noted Neuro Other: Intubated General: patient obtunded Extrem General: Yes normal to inspection Psych Mental Status: mental status grossly abnormal Objective Labs and Meds 02/12/24 05:55 02/12/24 05:55 Lab results: Laboratory Results - last 24 hr 02/11/24 02/11/24 02/11/24 15:08 19:30 19:32 WBC RBC Hgb Hct MCV MCH MCHC RDW Plt Count MPV Immature Gran % (Auto) Neut % (Auto) Lymph % (Auto) [place] % (Auto) Eos % (Auto) Baso % (Auto) Lymph # (Auto) [place] # (Auto) Eos # (Auto) Baso # (Auto) Abs Immat Gran (auto) Absolute Neuts (auto) Absolute Nucleated RBC Nucleated RBC % (auto) Smear Tech's Comments O2 Saturation ABG pH at Pt Temp ABG pCO2 at Pt Temp ABG pO2 at Pt Temp ABG HCO3 ABG Base Excess (Actual) VBG pH 7.28 L VBG pCO2 40 VBG pO2 46 VBG HCO3 19 L VBG O2 Saturation 72.0 VBG Base Excess -7.0 Sodium 138 Potassium 3.7 Chloride 109 H Carbon Dioxide 19 L Anion Gap 14 BUN 13 Creatinine 1.05 Estim Creat Clear Calc 90.7 Estimated GFR > 60 POC Glucose Random Glucose 260 H Lactic Acid Lactic Acid F/U @ 2Hr Lactic Acid F/U @ 4Hr Calcium 8.1 L Phosphorus 3.8 Magnesium 4.0 H* Total Creatine Kinase 156 Troponin I High Sens 8.8 D TSH 0.47 02/11/24 02/11/24 02/12/24 21:00 22:26 00:25 WBC RBC Hgb Hct MCV MCH MCHC RDW Plt Count MPV Immature Gran % (Auto) Neut % (Auto) Lymph % (Auto) [place] % (Auto) Eos % (Auto) Baso % (Auto) Lymph # (Auto) [place] # (Auto) Eos # (Auto) Baso # (Auto) Abs Immat Gran (auto) Absolute Neuts (auto) Absolute Nucleated RBC Nucleated RBC % (auto) Smear Tech's Comments O2 Saturation 95.0 ABG pH at Pt Temp 7.06 L* ABG pCO2 at Pt Temp 42 ABG pO2 at Pt Temp 99 ABG HCO3 12 L ABG Base Excess (Actual) -17.3 VBG pH VBG pCO2 VBG pO2 VBG HCO3 VBG O2 Saturation VBG Base Excess Sodium 134 L Potassium 3.3 Chloride 102 Carbon Dioxide 12 L Anion Gap 23 H BUN 13 Creatinine 1.94 H Estim Creat Clear Calc 49.0 Estimated GFR 38 POC Glucose Random Glucose 458 H* Lactic Acid 8.7 H* Lactic Acid F/U @ 2Hr 13.0 H* Lactic Acid F/U @ 4Hr Calcium 8.6 D Phosphorus 6.6 H Magnesium 5.0 H* Total Creatine Kinase Troponin I High Sens TSH 02/12/24 02/12/24 02/12/24 01:19 03:09 03:12 WBC RBC Hgb Hct MCV MCH MCHC RDW Plt Count MPV Immature Gran % (Auto) Neut % (Auto) Lymph % (Auto) [place] % (Auto) Eos % (Auto) Baso % (Auto) Lymph # (Auto) [place] # (Auto) Eos # (Auto) Baso # (Auto) Abs Immat Gran (auto) Absolute Neuts (auto) Absolute Nucleated RBC Nucleated RBC % (auto) Smear Tech's Comments O2 Saturation 68.0 ABG pH at Pt Temp 7.04 L* ABG pCO2 at Pt Temp 46 H ABG pO2 at Pt Temp 49 L* ABG HCO3 13 L ABG Base Excess (Actual) -17.0 VBG pH 7.11 L* VBG pCO2 40 VBG pO2 57 VBG HCO3 13 L VBG O2 Saturation 82.0 VBG Base Excess -15.3 Sodium Potassium Chloride Carbon Dioxide Anion Gap BUN Creatinine Estim Creat Clear Calc Estimated GFR POC Glucose Random Glucose Lactic Acid Lactic Acid F/U @ 2Hr Lactic Acid F/U @ 4Hr 15.0 H* Calcium Phosphorus Magnesium Total Creatine Kinase Troponin I High Sens TSH 02/12/24 02/12/24 02/12/24 05:43 05:55 06:04 WBC 38.0 H* RBC 4.33 L Hgb 13.4 L Hct 41.8 L D MCV 96.5 D MCH 30.9 MCHC 32.1 RDW 13.3 Plt Count 177 D MPV 11.2 Immature Gran % (Auto) 3.1 H Neut % (Auto) 88.6 H Lymph % (Auto) 6.2 L [place] % (Auto) 1.7 L Eos % (Auto) 0.1 Baso % (Auto) 0.3 Lymph # (Auto) 2.4 [place] # (Auto) 0.6 Eos # (Auto) 0.1 Baso # (Auto) 0.1 Abs Immat Gran (auto) 1.17 H Absolute Neuts (auto) 33.7 H Absolute Nucleated RBC 0.040 H Nucleated RBC % (auto) 0.1 Smear Tech's Comments VERIFIED O2 Saturation ABG pH at Pt Temp ABG pCO2 at Pt Temp ABG pO2 at Pt Temp ABG HCO3 ABG Base Excess (Actual) VBG pH 7.16 L* VBG pCO2 37 VBG pO2 55 VBG HCO3 13 L VBG O2 Saturation 82.0 VBG Base Excess -14.3 Sodium 128 L Potassium 2.8 L* Chloride 92 L Carbon Dioxide 13 L Anion Gap 26 H BUN 13 Creatinine 2.21 H Estim Creat Clear Calc 43.0 Estimated GFR 33 POC Glucose 573 H* Random Glucose 670 H* Lactic Acid Lactic Acid F/U @ 2Hr Lactic Acid F/U @ 4Hr Calcium 8.0 L D Phosphorus 2.5 L Magnesium 4.9 H* Total Creatine Kinase Troponin I High Sens 440.4 H* D TSH 02/12/24 02/12/24 02/12/24 06:45 07:51 07:57 WBC RBC Hgb Hct MCV MCH MCHC RDW Plt Count MPV Immature Gran % (Auto) Neut % (Auto) Lymph % (Auto) [place] % (Auto) Eos % (Auto) Baso % (Auto) Lymph # (Auto) [place] # (Auto) Eos # (Auto) Baso # (Auto) Abs Immat Gran (auto) Absolute Neuts (auto) Absolute Nucleated RBC Nucleated RBC % (auto) Smear Tech's Comments O2 Saturation ABG pH at Pt Temp ABG pCO2 at Pt Temp ABG pO2 at Pt Temp ABG HCO3 ABG Base Excess (Actual) VBG pH VBG pCO2 VBG pO2 VBG HCO3 VBG O2 Saturation VBG Base Excess Sodium Potassium Chloride Carbon Dioxide Anion Gap BUN Creatinine Estim Creat Clear Calc Estimated GFR POC Glucose 532 H* > 600 H* 569 H* Random Glucose Lactic Acid Lactic Acid F/U @ 2Hr Lactic Acid F/U @ 4Hr Calcium Phosphorus Magnesium Total Creatine Kinase Troponin I High Sens TSH 02/12/24 02/12/24 02/12/24 09:00 09:03 09:57 WBC RBC Hgb Hct MCV MCH MCHC RDW Plt Count MPV Immature Gran % (Auto) Neut % (Auto) Lymph % (Auto) [place] % (Auto) Eos % (Auto) Baso % (Auto) Lymph # (Auto) [place] # (Auto) Eos # (Auto) Baso # (Auto) Abs Immat Gran (auto) Absolute Neuts (auto) Absolute Nucleated RBC Nucleated RBC % (auto) Smear Tech's Comments O2 Saturation ABG pH at Pt Temp ABG pCO2 at Pt Temp ABG pO2 at Pt Temp ABG HCO3 ABG Base Excess (Actual) VBG pH VBG pCO2 VBG pO2 VBG HCO3 VBG O2 Saturation VBG Base Excess Sodium Potassium Chloride Carbon Dioxide Anion Gap BUN Creatinine Estim Creat Clear Calc Estimated GFR POC Glucose > 600 H* > 600 H* > 600 H* Random Glucose Lactic Acid Lactic Acid F/U @ 2Hr Lactic Acid F/U @ 4Hr Calcium Phosphorus Magnesium Total Creatine Kinase Troponin I High Sens TSH 02/12/24 02/12/24 10:00 10:34 WBC RBC Hgb Hct MCV MCH MCHC RDW Plt Count MPV Immature Gran % (Auto) Neut % (Auto) Lymph % (Auto) [place] % (Auto) Eos % (Auto) Baso % (Auto) Lymph # (Auto) [place] # (Auto) Eos # (Auto) Baso # (Auto) Abs Immat Gran (auto) Absolute Neuts (auto) Absolute Nucleated RBC Nucleated RBC % (auto) Smear Tech's Comments O2 Saturation ABG pH at Pt Temp ABG pCO2 at Pt Temp ABG pO2 at Pt Temp ABG HCO3 ABG Base Excess (Actual) VBG pH 7.16 L* VBG pCO2 34 VBG pO2 68 VBG HCO3 12 L VBG O2 Saturation 92.0 VBG Base Excess -14.8 Sodium Potassium Chloride Carbon Dioxide Anion Gap BUN Creatinine Estim Creat Clear Calc Estimated GFR POC Glucose > 600 H* Random Glucose Lactic Acid Lactic Acid F/U @ 2Hr Lactic Acid F/U @ 4Hr Calcium Phosphorus Magnesium Total Creatine Kinase Troponin I High Sens TSH Imaging Radiologist's impression: Impressions Chest X-Ray 02/11/24 11:10 IMPRESSION: Well-positioned support tubes Chest X-Ray 02/11/24 12:38 IMPRESSION: 1. Endotracheal tube 2.4 cm above layla. Central venous catheter tip as above. No pneumothorax Chest X-Ray 02/11/24 21:40 IMPRESSION: 1. The endotracheal tube terminates at 3.5 cm above the layla. 2. Increased bronchovascular markings with no consolidation, pleural effusion or pneumothorax. Findings are nonspecific could be accentuated by low lung volumes and bronchovascular crowding, versus related with small airways disease and pulmonary edema. 3. No displaced osseous fractures. Progress Note: A&P Assessment and plan (1) Cardiac arrest: Status: Acute (2) Cocaine abuse: Status: Acute (3) Methadone use: Status: Acute (4) Torsades de pointes: Status: Acute Plan Essentially patient with polysubstance abuse and he was positive for opiates, fentanyl, amphetamines, benzodiazepines, cocaine, marijuana, intubated yesterday. From a cardiac standpoint, he had QT prolongation likely related to drugs as well as methadone. Overnight, ventricular tachycardia episodes. Some of the episodes look monomorphic but others are clearly polymorphic. Two troponins yesterday were unremarkable and hence this is not ischemic but rather from the illicit drugs. Morning troponin is elevated but because of cardiac arrest episodes. He has been resuscitated but still appears critically ill. Currently, sinus rhythm in the 70s. He is on multiple pressors, and overall high likelihood of . Unlikely that any further cardiac intervention will help. EKG this a.m.-sinus rhythm at 83/Min; nonspecific interventricular conduction defect. Discussed with master motorcycle technician. Time Spent With Patient Time: Total time managing care of this patient today ____ minutes. Progress Note: Quality Stroke Does the patient have a stroke diagnosis?: No Procedures Date of Service Date of Service: 02/12/24
[2024-02-12 11:07] LABS: Lactic Acid 15.2 mmol/L (0.5-2.0)
[2024-02-12 11:10] LABS: Alanine Aminotransferase 765 U/L (0-40); Albumin Level 2.3 g/dL (3.5-5.0); Alkaline Phosphatase 63 U/L (39-117); Anion Gap 25 (12-20); Aspartate Amino Transferase 1331 U/L (5-37); Blood Urea Nitrogen 14 mg/dL (9-16); Calcium 8.5 mg/dL (8.4-10.2); Carbon Dioxide 12 mmol/L (22-29); Chloride 88 mmol/L (96-108); Creatinine Clr Calc Pharmacy 39.1; Estimated Glomerular Filt Rate 29; Phosphorus 2.5 mg/dL (2.7-4.5); Potassium 3.3 mmol/L (3.3-5.1); Sodium 122 mmol/L (135-145)
[2024-02-12] MEDS: Phenylephrine HCL 20 MG in 0.9 % Sodium Chloride 250 ML 107.81 MG IVCONT (11:13)
[2024-02-12 11:18] LABS: Venous Blood Gas Refer to POC result
[2024-02-12] MEDS: vancomycin HCL 1,000 MG in 0.9 % Sodium Chloride 250 ML 270 MG IV (11:19)
[2024-02-12 11:27] LABS: Glucose Random 783 mg/dL (60-115); Magnesium 4.9 mg/dL (1.6-2.6)
[2024-02-12] MEDS: Albumin Human 25 % 100 ML IV (11:58)
[2024-02-12 12:26] LABS: VBG Base Excess -15.1 mmol/L; VBG HCO3 12 mmol/L (22-26); VBG pCO2 35 mmHg; VBG pH 7.15 (7.32-7.43); VBG pO2 62 mmHg
[2024-02-12 12:33] LABS: Reflex Lactate? Lactic Acid Added
[2024-02-12] MEDS: Potassium Phosphate/NS 15 MMOL/250 ML PLAST..BAG 62.5 MMOL IV (12:33)
[2024-02-12] MEDS: Insulin Regular/NS 100 UNIT/100 ML PLAST..BAG 30 UNIT IVCONT (12:33)
[2024-02-12 12:45] LABS: Anion Gap 23 (12-20); Blood Urea Nitrogen 14 mg/dL (9-16); Calcium 7.8 mg/dL (8.4-10.2); Carbon Dioxide 13 mmol/L (22-29); Chloride 87 mmol/L (96-108); Estimated Glomerular Filt Rate 25; Phosphorus 2.5 mg/dL (2.7-4.5); Potassium 3.2 mmol/L (3.3-5.1)
[2024-02-12 12:53] LABS: Glucose Random 818 mg/dL (60-115); Lactic Acid 14.1 mmol/L (0.5-2.0); Sodium 120 mmol/L (135-145)
[2024-02-12] MEDS: Phenylephrine HCL 20 MG in 0.9 % Sodium Chloride 250 ML 215.61 MG IVCONT (13:02)
[2024-02-12 13:05] LABS: Glucose, Whole Blood > 600 mg/dL (60-115)
[2024-02-12] MEDS: Insulin Regular, Human 100 UNIT/ML 3 ML VIAL 20 UNIT IVPUSH ×2 (13:10→14:40)
--- NOTE | 2024-02-12 13:10 | P.ACPN_ITS ---
Advanced Care Planning Note Advanced Care Planning Note Discussed with: family member(s) Time spent (in minutes): 60 Narrative: I spoke with Mr. Hendrickson's father, Selvin, and step-mother Marli, separately this morning on the phone. Selvin was able to come to the hospital this morning. I introduced myself and discussed Mr. Hendrickson's emergency department and ICU course. I offered any clarifications. We discussed Mr. Fultons multiple cardiac arrests, shock, and multi-system organ failure, including cardiovasular, respiratory, renal, and hepatic failure, as well as the likely possibily of Mr. Hendrickson also having significant anoxic brain injury. Selvin expressed und erstanding of this. Selvin described Mr. Hendrickson's social situation in recent years. Selvin has not seen his son in 20 years, but believes Mr. Hendrickson's step- brothers have likely had contact with Mr. Hendrickson in more recent years. Selvin knows Mr. Hendrickson had a partner, with whom he had at least one son, but does not believe Mr. Hendrickson has communicated with his ex-partner and son in perhaps years. Overall, Selvin does not believe Mr. Hendrickson has ever expressed his wishes to anyone, and very unlikely has a healthcare proxy. I described that since Selvin is Mr. Hendrickson's father, and appears to be the person most involved in his care at this point in time, that we will seek his guidance with regards to next steps in Mr. Fultons care. Selvin expressed concerns that Mr. Hendrickson would not survive this admission and questioned Mr. Hendrickson's quality of life and ability to overcome his addiction if Mr. Hendrickson did indeed survive this admission. We discussed that if Mr. Hendrickson goes into another cardiac arrest, we would not perform CPR. Selvin stated since no one has been in involved in Mr. Fultons life in the past years, if there were a loved one who objects to Mr. Hendrickson being DNR, then we will reverse his code status to full code. However, as it stands, Mr. Hendrickson will be DNR. In a separate conversation with Marli, she is in agreement with DNR. Problems Discussed (1) Cardiac arrest: (2) Cocaine abuse: (3) Methadone use: (4) Torsades de pointes:
[2024-02-12 13:15] LABS: ~Lactic Acid-LAB USE ONLY 14.3 mmol/L (0.5-2.0)
[2024-02-12 14:10] LABS: Glucose, Whole Blood > 600 mg/dL (60-115)
[2024-02-12 14:14] LABS: Reflex Lactate? Lactic Acid Added
[2024-02-12] MEDS: Phenylephrine HCL 20 MG in 0.9 % Sodium Chloride 250 ML 242.56 MG IVCONT (14:19)
[2024-02-12 14:47] LABS: Reflex Lactate? 2 Y
[2024-02-12] MEDS: Furosemide 100 MG/10 ML VIAL 60 MG IVPUSH (14:50)
[2024-02-12] MEDS: Sodium Bicarbonate 8.4% 150 MEQ in Dextrose 5 % 850 ML IV (14:52)
[2024-02-12] MEDS: Hydrocortisone Sod Succ/PF 100 MG VIAL 50 MG IVPUSH (15:08)
[2024-02-12 15:10] LABS: Glucose, Whole Blood > 600 mg/dL (60-115)
[2024-02-12] MEDS: Insulin Regular/NS 100 UNIT/100 ML PLAST..BAG 45 UNIT IVCONT (15:11)
[2024-02-12 15:12] LABS: Glucose Random 798 mg/dL (60-115)
[2024-02-12] MEDS: Phenylephrine HCL 20 MG in 0.9 % Sodium Chloride 250 ML 323.42 MG IVCONT ×3 (15:12→16:54)
[2024-02-12 15:20] LABS: ~Lactic Acid-LAB USE ONLY 12.9 mmol/L (0.5-2.0)
--- NOTE | 2024-02-12 15:48 | W.MHC.ACPN ---
Advanced Care Planning Note Advanced Care Planning Note Discussed with: family member(s) Time spent (in minutes): 30 Narrative: Mr. Hendrickson's previous partner and 2 sons came to bedside. I introduced myself and described Mr. Hendrickson's emergency department and ICU course. I offered any clarifications. We discussed his critical illness and poor prognosis. They expressed understanding of this. At this point in time, as a family, they have decided to change Mr. Hendrickson's philosophy of care to comfort-focused care. Problems Discussed (1) Cardiac arrest: (2) Cocaine abuse: (3) Methadone use: (4) Torsades de pointes:
--- NOTE | 2024-02-12 15:50 | P.DN_ITS ---
Discharge Sum: Prov Provider Primary care physician: Unknown Physician Admitting clinician: Teri Davis Consults: 02/11/24 00:55 Addiction Medicine Stat Consulting Provider: Addiction Covering Reason for consultation: requesting detox wants to go [facility] Has provider been notified: No 02/11/24 08:20 Consult to Cardiology Stat Consulting Provider: [facility] Reason for consultation: Prolonged QTC Has provider been notified: Yes 02/11/24 10:46 Consult to Wound Care Routine Reason for consultation: wound to L hand and scab to R foot 02/12/24 14:51 Consult to [facility] ([facility]) Routine Consulting Provider: [facility] Pronouncing clinician: Teri Davis Discharge Sum: Diag PCOD Cause of : Cardiogenic shock Contributing Factors (1) Acute hypoxic respiratory failure: (2) Cardiac arrest: (3) Torsades de pointes: (4) Methadone use: (5) Cocaine abuse: (6) Renal failure, acute: (7) Hepatic failure, acute: Discharge Sum: Summary Date and Time Date of admission: 02/11/24 08:26 Date of : 02/12/24 Time of : 15:14 Summary Details: Mr. Hendrickson is a 43 Y M with polysubstance misuse, prior hepatitis C, and psychiatric comorbidities, presenting initially to emergency department on 02/09 with auditory and visual hallucinations in the setting of reported cocaine use and self-reported methadone withdrawal. In emergency department, Mr. Hendrickson was found to have QTc prolongation. Mr. Hendrickson developed worsening agitation, necessitating intubation in emergency department and transferred to the ICU on 02/10. At around 02/10 21:00, Mr. Hendrickson suffered a cardiac arrest, ventricular tachycardia, though to be precipitated by torsade de pointes. Mr. Hendrickson achieved return of spontaneous circulation, though developed refractory shock, complicated by multi-system organ failure, including cardiovascular, respiratory, renal, and hepatic failure, as well as concern for severe anoxic brain injury. At around 02/11 04:00, Mr. Hendrickson suffered another cardiac arrest, ventricular tachycardia. Mr. Hendrickson's family including father, step-mother, prior partner, and 2 sons, came to Mr. Hendrickson's bedside. As a family, they decided to transition Mr. Hendrickson's philosophy of care to comfort-focused care. Mr. Hendrickson later on 02/11. Additional Data Confirmation of as documented by pronouncing clinician: no pulse, no respirations, no heart sounds and pupils fixed and dilated Family: at bedside Attending physician: Teri Davis MD
--- NOTE | 2024-02-12 15:53 | MHC.CM.PN ---
CM MET WITH FAMILY/DR. CRANDALL IN ICU. SUPPORT OFFERED AND FAMILY TO MEET TOGETHER TO DISCUSS GOC FOR PT.
[2024-02-12 16:18] LABS: Glucose Random 796 mg/dL (60-115)
[2024-02-12] MEDS: HYDROmorphone HCl 1 MG/ML SYRINGE 0.5 MG IVPUSH (16:45)
[2024-02-12] MEDS: Haloperidol Lactate 5 MG/ML VIAL IVPUSH (16:45)
[2024-02-12] MEDS: Scopolamine 1.5 MG PATCH.TD.3 TRANSDERMA (16:45)
[2024-02-12 16:55] LABS: Reflex Lactate? 2 Y
[2024-02-12] MEDS: Morphine Sulfate 2 MG/ML CARTRIDGE IVPUSH (16:56)
[2024-02-12 17:13] LABS: Glucose Random 791 mg/dL (60-115)
--- NOTE | 2024-02-12 18:12 | PC.NURSE ---
Contact numbers for patient belongings: [facility] [phone] Marli Hendrickson [phone]
--- NOTE | 2024-02-12 18:31 | PC.NURSE ---
Assumed care of patient 0700 Pt had the following continuous drips: Levo@1 mcg/kg/min, Epi @2mcg/kg/min, Vasopressin @0.04 u/min, Dopamine @20 mcg/kg/min, Bicarb gtt@ 100ml/hr, Magnesium sulfate gtt@ o.5gm/hr Magnesium gtt increased to 1 Insulin gtt started for high serum blood glucose 532 Pt unstable and unresponsive, RASS -5. negative cough, negative gag, pupils fixed, 6mm dialted, nonreactive Phenylephrine gtt started @ 0.5 and increased per protocol EKG completed for QTc monitoring. Qtc 383 EEG completed in pt room case management was able to locate contact information for patient's father. MD called number and pt father came to visit at bedside. Ex and 2 sons arrived at bedside ~15:00 14:45 Pt pressor needs remained high and Phenylephrine titrated up to maximum rate @6. Oxygen saturation decreased to 86-88% with FiO2 @100%. Blood pressures decreased with MAP 52. MD and RT notified. PEEP increased from 5.0 to 10.0. MD and case management had discussions with family regarding health status and decision making. Family in agreement with comfort care. Family encouraged to see pt at bedside and notify staff when ready for comfort measures. 16:30 Family indicates ready for comfort care to begin. New orders for CASING TESTER and terminal extubation. Pt given 0.5 mg dilaudid IVP, 2mg morphine IVP, scopolamine patch, haldol 0.5 mg IVP RT and RN to bedside for terminal extubation. ET tube and OG tube removed. COntinuous drips paused. Pt extubated 17:[address] by Dr Susan VÁZQUEZ at 17:14
[2024-03-10 11:22] LABS: Glucose, Whole Blood > 600 mg/dL (60-115)
== END 2024-02-12 17:14 | disposition expired | DRG 773 ==
LOC: HO.ED 08:09 → HO.EDOVER 08:48 → HO.ICU 09:17
PROVIDERS: Emergency Medicine; Nurse Practitioner Family; Admitting Provider Internal Medicine Critical Care Medicine; Emergency Provider Emergency Medicine; Visit Provider Internal Medicine Critical Care Medicine
DX: F11.23 Opioid dependence with withdrawal (principal); I46.9 Cardiac arrest, cause unspecified; J96.01 Acute respiratory failure with hypoxia; F14.10 Cocaine abuse, uncomplicated; R57.0 Cardiogenic shock; I50.9 Heart failure, unspecified; K72.00 Acute and subacute hepatic failure without coma; E87.20 Acidosis, unspecified; Z66 Do not resuscitate; G93.1 Anoxic brain damage, not elsewhere classified; I47.21 Torsades de pointes; N17.9 Acute kidney failure, unspecified; R56.9 Unspecified convulsions; E87.6 Hypokalemia; R94.31 Abnormal electrocardiogram [ECG] [EKG]; Z86.19 Personal history of other infectious and parasitic diseases; Z51.5 Encounter for palliative care
CPT/HCPCS: 36415; 36600; 71045; 80048; 80053; 80076; 80307; 82550; 82803; 82947; 83605; 83735; 84100; 84443; 84484; 85025; 87040; 93005; 93306; 94002; 94003; 94799; 95816; 99285; 99498; J0171; J0613; J1170; J1265; J1630; J1650; J1720; J1940; J2060; J2250; J2251; J2270; J2371; J2543; J2598; J2704; J3010; J3370; J3371; J3475; J3480; J7120; P9047

== ENCOUNTER 2024-02-11 08:26 | Outpatient (BNV) | payer MEDICAID, SELFPAY | END 2024-02-12 08:49 | PROVIDERS: Admitting Provider Internal Medicine Critical Care Medicine; Emergency Provider Emergency Medicine; Visit Provider Internal Medicine | DX: I49.8 Other specified cardiac arrhythmias (principal); I45.4 Nonspecific intraventricular block | CPT/HCPCS: 93010 ==

== ENCOUNTER → 2024-02-11 08:26 | Outpatient (BNV) | payer MEDICAID, SELFPAY | PROVIDERS: Admitting Provider Internal Medicine Critical Care Medicine; Emergency Provider Emergency Medicine; Visit Provider Internal Medicine | DX: I46.9 Cardiac arrest, cause unspecified (principal); F14.10 Cocaine abuse, uncomplicated; F11.90 Opioid use, unspecified, uncomplicated; I47.21 Torsades de pointes; I45.81 Long QT syndrome; R94.31 Abnormal electrocardiogram [ECG] [EKG] | CPT/HCPCS: 93010; 93306; 99223; 99233 ==

== ENCOUNTER → 2024-02-11 08:26 | Outpatient (BNV) | payer MEDICAID, SELFPAY | PROVIDERS: Admitting Provider Internal Medicine Critical Care Medicine; Emergency Provider Emergency Medicine; Visit Provider Internal Medicine Critical Care Medicine | DX: F11.93 Opioid use, unspecified with withdrawal (principal); F14.10 Cocaine abuse, uncomplicated; I45.81 Long QT syndrome; R45.1 Restlessness and agitation | CPT/HCPCS: 36556; 99223; 99238; 99291; 99292 ==